=== PATIENT | male | born 1930 | race Caucasian/White ===

== ENCOUNTER 2017-06-19 14:11 | Inpatient (IN) | payer OTHER ==
[~2017-06-19] VITALS: Ht 167.6 cm; Wt 48.1 kg
[~2017-06-19 14:11] MED LIST: ASPI81TA21 PO; ATOR-22 PO; CALC0.2510 PO; CARV3.122 PO; ISOS30TA35 PO; LISI-729 PO; NTRGSL/4 UT; OMEP20TA PO; TAMS0.4C38 PO
[2017-06-19 14:50] LABS: BASO % 0.1 %; BASO ABS # 0.01 K/uL (0-0.2); COMPLETE YES; EOS % 0.1 %; HEMATOCRIT 39.6 % (42-52); IG% 0.7 %; LYMPH % 11.7 %; LYMPH ABS # 1.06 K/uL (1.2-3.4); MEAN CELL VOLUME 90.8 fL (80-100); MEAN CORPUSCULAR HEMOGLOBIN 30.5 pg (25-34); MEAN CORPUSCULAR HGB CONC 33.6 g/dl (32-36); MEAN PLATELET VOLUME 9.4 fL (7.4-10.4); MONO % 6.9 %; NEUT % 80.5 %; PLATELET COUNT 228 K/uL (130-400); RED BLOOD COUNT 4.36 M/uL (4.7-6.1); WHITE BLOOD COUNT 9.05 K/uL (4.8-10.8)
[2017-06-19 14:56] LABS: ISTAT CREATININE 2.5 mg/dl (0.6-1.3); ISTAT HEMOGLOBIN 13.9 g/dl (14.0-18.0); ISTAT IONIZED CALCIUM 1.15 mmol/l (1.12-1.32)
[2017-06-19] MEDS ORDERED: CALCIUM GLUCONATE 10% 10 ML VIAL IV STA (15:00)
[2017-06-19] MEDS ORDERED: NovoLIN-R INSULIN PER UNIT CHARGE IV STA (15:00)
[2017-06-19] MEDS ORDERED: DEXTROSE 50% 50 ML SYR IV STA (15:00)
[2017-06-19] MEDS ORDERED: ALBUTEROL 0.5% NEB SOLN 2.5 MG/0.5 ML VIAL INH STA (15:00)
[2017-06-19] MEDS ORDERED: SODIUM CHLORIDE 0.9% 1000ML 1,000 ML IV STA (15:00)
--- NOTE | 2017-06-19 15:02 | EMERGENCY ROOM VISIT NOTE ---
History Report prepared by Mikael: Elizabeth Sue Under the Supervision of: Dr. Jose Liu M.D. First contact with patient: 14:14 Chief Complaint: ABNORMAL LABS Stated Complaint: HIGH POTASSIUM History of Present Illness The patient is an 86 year old male who presents to the Emergency Room with complaints of abnormal lab results. He is accompanied by his daughter. The patient was started on Bactrim this past weekend by a local urgent care clinic for a UTI. He followed up with his PCP, Dr. Collins with [facility], this morning. A few hours after the appointment, his daughter was called by Dr. Collins's nursing staff and states the patient was referred to the ED for abnormally high Potassium levels. His daughter reports the patient had been complaining of back pain for the past week, and took Tylenol, which is unusual for him. The patient states his UTI symptoms have been improving but his urine stream is still weak when he urinates. He denies any abdominal pain. 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 A total of 10 systems reviewed and were otherwise negative. Past Medical & Surgical Medical Problems: (1) CHANO (acute kidney injury) (2) Atrial flutter (3) BPH w urinary obs/LUTS (4) CAD (coronary artery disease) (5) CKD (chronic kidney disease), stage III (6) Dyslipidemia (7) Elevated troponin (8) Exertional angina (9) GERD (gastroesophageal reflux disease) (10) HTN (hypertension) (11) Hyperkalemia Surgical Problems: (1) H/O inguinal hernia repair (2) History of cataract surgery (3) History of quadruple bypass (4) S/P CABG x 4 (5) S/P cardiac catheterization Family History FHx: heart disease Social History Smoking Status: Former Smoker Alcohol Use: none Drug Use: none Marital Status: Housing Status: lives with family Occupation Status: retired Current/Historical Medications Scheduled Aspirin (Aspirin Chewable), 81 MG PO DAILY Atorvastatin (Lipitor), 20 MG PO DAILY Calcitriol (Rocaltrol Cap), 0.25 MCG PO DAILY Carvedilol (Coreg), 0.5 TAB PO BID Furosemide (Furosemide), 20 MG PO DAILY Isosorbide Mononitrate Ext Rel (Imdur Ext Rel), 30 MG PO QAM Lisinopril (Prinivil), 5 MG PO DAILY Nitroglycerin (Nitrostat), 0.4 MG UT PRN Omeprazole (Omeprazole), 20 MG PO QPM Sulfamethoxazole-Trimethoprim (Bactrim Ds 800MG/160MG), 1 TAB PO BID Tamsulosin Hcl (Flomax), 0.4 MG PO DAILY Allergies Coded Allergies: Peanut (Verified Allergy, Intermediate, RASH, 09/11/16) Tomato (Verified Allergy, Intermediate, RASH, 09/11/16) No Known Drug Allergy (Verified Allergy, Unknown, ., 06/27/16) Physical Exam Vital Signs Date Time Temp Pulse Resp B/P (MAP) Pulse Ox O2 Delivery O2 Flow Rate FiO2 06/19/17 17:16 85 12 143/78 94 Room Air 06/19/17 16:17 86 16 146/87 94 Room Air 06/19/17 15:34 71 16 163/82 95 Room Air 06/19/17 14:45 93 Room Air 06/19/17 14:36 82 06/19/17 14:15 36.6 89 18 121/63 96 Room Air Physical Exam GENERAL: Patient is a healthy-appearing well-nourished 86 year old male HEAD: Normocephalic atraumatic EYES: Ocular movements intact pupils equal and react to light OROPHARYNX mucous membranes are moist no exudates present no erythema or edema present NECK: Supple no nuchal rigidity CHEST: Good equal expansion LUNGS: Clear and equal to auscultation CARDIAC: Normal S1 and S2 ABDOMEN: Soft nontender no guarding BACK: No CVA tenderness RECTAL: Grossly bloody EXTREMITIES: No pain upon palpation normal muscle strength in all groups no clubbing cyanosis or edema NEURO: Patient is following commands is answering questions appropriately. Alert and oriented x3 Cranial Nerves 2-12 grossly intact Medical Decision & Procedures Laboratory Results Test 06/19/17 14:34 06/19/17 14:45 06/19/17 15:50 06/19/17 17:25 Direct Bilirubin 0.2 mg/dl (0-0.2) Total Creatine Kinase 352 U/L (39-308) Creatine Kinase MB 9.0 ng/ml (0.5-3.6) Creatine Kinase MB Ratio 2.6 (0-3.0) Thyroid Stimulating Hormone (TSH) 4.370 uIu/ml (0.300-4.500) Bedside Hemoglobin 13.9 g/dl (14.0-18.0) Bedside Hematocrit 41 % (42-52) Bedside Sodium 136 mEq/L (135-144) Bedside Potassium 5.9 mEq/L (3.3-5.0) Bedside Chloride 104 mEq/L (101-112) Bedside Total CO2 23 mEq/l (24-31) Bedside Blood Urea Nitrogen 46 mg/dl (7-18) Bedside Creatinine 2.5 mg/dl (0.6-1.3) Bedside Glucose (other) 117 mg/dl (70-99) Bedside Ionized Calcium (Jeanne) 1.15 mmol/l (1.12-1.32) Urine Color YELLOW Urine Appearance CLEAR (CLEAR) Urine pH 7.0 (4.5-7.5) Urine Specific [place] 1.018 (1.000-1.030) Urine Protein NEG (NEG) Urine Glucose (UA) 1+ (NEG) Urine Ketones NEG (NEG) Urine Occult Blood 1+ (NEG) Urine Nitrite NEG (NEG) Urine Bilirubin NEG (NEG) Urine Urobilinogen NEG (NEG) Urine Leukocyte Esterase SMALL (NEG) Urine WBC (Auto) 10-30 /hpf (0-5) Urine RBC (Auto) 10-30 /hpf (0-4) Urine Hyaline Casts (Auto) 1-5 /lpf (0-5) Urine Epithelial Cells (Auto) 10-20 /lpf (0-5) Urine Bacteria (Auto) NEG (NEG) Total Bilirubin 0.4 mg/dl (0.2-1) Aspartate Amino Transf (AST/SGOT) 39 U/L (15-37) Alanine Aminotransferase (ALT/SGPT) 41 U/L (12-78) Alkaline Phosphatase 73 U/L (45-117) Total Protein 7.1 gm/dl (6.4-8.2) Albumin 3.2 gm/dl (3.4-5.0) Globulin 3.9 gm/dl (2.5-4.0) Albumin/Globulin Ratio 0.8 (0.9-2) Beta-Hydroxybutyric Acid 1.10 mg/dL (0.2-2.81) Labs reviewed by ED physician. Medications Administered Medications (Trade) Dose Ordered Sig/Malachi Route Start Time Stop Time Status Last Admin Dose Admin Sodium Chloride 1,000 ml @ 999 mls/hr Q1H1M STAT IV 06/19/17 15:00 06/19/17 16:00 DC 06/19/17 15:19 999 MLS/HR Calcium Gluconate (Calcium Gluconate 10%) 1,000 mg NOW STAT IV 06/19/17 15:00 06/19/17 15:04 DC 06/19/17 15:17 1,000 MG Albuterol Sulfate (Ventolin 0.5% 2.5MG/0.5ML Neb) 2.5 mg NOW STAT INH 06/19/17 15:00 06/19/17 15:04 DC 06/19/17 15:17 2.5 MG Insulin Human Regular (novoLIN-R U-100 PER UNIT) 10 units NOW STAT IV 06/19/17 15:00 06/19/17 15:04 DC 06/19/17 15:17 10 UNITS Dextrose (Dextrose 50% 50ML Syringe) 50 ml NOW STAT IV 06/19/17 15:00 06/19/17 15:04 DC 06/19/17 15:18 50 ML Dextrose (Dextrose 50% 50ML Syringe) 50 ml STK-MED ONCE .ROUTE 06/19/17 17:24 06/19/17 17:25 DC 06/19/17 17:24 50 ML ED Course 1455: Past medical records reviewed. The patient was evaluated in room C6. A complete history and physical examination was performed. 1500: Dextrose 50 ml IV, Insulin Human Regular 10 units IV, Albuterol Sulfate 2.5 mg INH, Calcium Gluconate 1000 mg IV, NSS 1000 ml @ 999 mls/hr IV. 1515: I discussed the patients case with Melodie Kahn PA-C, [facility] Hospitalist. The patient will be further evaluated. 1519: Nursing informed me the patient has a Troponin of 0.541. Medical Decision Prior records/ancillary studies reviewed. Triage Nursing notes reviewed. The patient's history was concerning for possible gastrointestinal bleeding. Differential diagnosis: Etiologies such as diverticulosis, AVM, coagulopathy, colitis, inflammatory bowel disease, malignancy, Chelsy-Chapa tear, esophagitis, peptic ulcer disease , variceal bleed, gastritis, epistaxis, fissure, hemorrhoids, as well as others were entertained. This is an 86-year-old male who presents emergency department over concerns his potassium was elevated. The patient's potassium is elevated therefore he was given calcium gluconate in the emergency department. The patient also has EKG changes consistent with peaked T waves. In addition the patient also appears to have an and STEMI. The patient was given dextrose along with insulin he is also started on a heparin drip and given aspirin. I did discuss the case with the hospitalist service who agreed to admit the patient. Patient family were in agreement with the treatment plan. Medication Reconcilliation Current Medication List: was personally reviewed by me Blood Pressure Screening Patient's blood pressure: Normal blood pressure Blood pressure disposition: Did not require urgent referral Consults Time Called: 1507 Consulting Physician[facility] Returned Call: 1518 I discussed the patients case with Melodie Kahn PA-C, [facility] Hospitalist. The patient will be further evaluated. Impression Primary Impression: Acute renal failure Additional Impression: NSTEMI (non-ST elevated myocardial infarction) Scribe Attestation The scribe's documentation has been prepared under my direction and personally reviewed by me in its entirety. I confirm that the note above accurately reflects all work, treatment, procedures, and medical decision making performed by me. Departure Information Dispostion Being Evaluated By Hospitalist Referrals No Doctor, Assigned (PCP) Patient Instructions My [facility] Problem Qualifiers Primary Impression: Acute renal failure Acute renal failure type: unspecified Qualified Codes: N17.9 - Acute kidney failure, unspecified
[2017-06-19 15:05] LABS: BUN/CREATININE RATIO 17.4 (10-20); CALCIUM 9.6 mg/dl (8.5-10.1); CREATININE 2.6 mg/dl (0.60-1.40); POTASSIUM 5.8 mmol/L (3.5-5.1)
[2017-06-19 15:19] LABS: CKMB/CK RATIO 2.6 (0-3.0); THYROID STIMULATING HORMONE 4.37 uIu/ml (0.300-4.500)
[2017-06-19] MEDS ORDERED: ASPCH81X PO (15:57)
[2017-06-19] MEDS ORDERED: LSX20 PO (15:57)
[2017-06-19] MEDS ORDERED: ASPIRIN 81 MG CHEW PO STA (16:00)
[2017-06-19] MEDS ORDERED: SULF800T23 PO (16:06)
[2017-06-19 16:11] LABS: URINE APPEARANCE CLEAR (CLEAR); URINE BILIRUBIN NEG (NEG); URINE COLOR YELLOW; URINE NITRITE NEG (NEG); URINE SPECIFIC GRAVITY 1.018 (1.000-1.030); UROBILINOGEN NEG (NEG)
[2017-06-19] MEDS ORDERED: HEPARIN 25000 UNIT/500 ML D5W ONE (16:18)
--- NOTE | 2017-06-19 16:19 | DIAGNOSTIC IMAGING REPORT ---
(RENAL)RETROPERITON COMP HISTORY: Renal insufficiency Pt c/o ARF COMPARISON: None. FINDINGS: Right kidney: Maximum dimension 10.2 cm. No evidence for hydronephrosis. Several right renal cysts measuring up to 4.5 cm. Moderate cortical thinning with a moderate increase in cortical echogenicity. Left kidney: Maximum dimension 9.5 cm. No evidence for hydronephrosis. Several cysts measuring to 3.5 cm. Moderate cortical thinning and increase in cortical echogenicity. Bladder: No bladder wall thickening. The bilateral ureteral jets were identified. IMPRESSION: 1. Cortical thinning and increase in cortical echogenicity consistent with renal insufficiency. 2. Multiple bilateral renal cysts. 3. No evidence for hydronephrosis. The above report was generated using voice recognition software. It may contain grammatical, syntax or spelling errors. Electronically signed by: Shailesh Gurrola M.D. 06/19/2017 4:18 PM Dictated Date/Time: 06/19/2017 4:16 PM
[2017-06-19 16:36] LABS: MANUAL MICROSCOPIC REQUIRED? NO; REVIEW REQ? NO
--- NOTE | 2017-06-19 16:58 | History and Physical ---
History & Physical Date & Time of Service: Jun 19, 2017 at 16:06 Chief Complaint: High Potassium Primary Care Physician: Chris Collins D.O. History of Present Illness Source: patient, family (daughter at bedside), clinic records This is an 86 y/o male with PMH of CAD s/p multiple RI's, s/p CABG x 4 in 1995, s/p inferior STEMI June 2010 at which time cardiac cath showed complete occlusion of SVG to RCA which was not amenable to PCI and was treated medically , chronic systolic CHF, EF 45-50%, atrial flutter, off Coumadin since 08/07/2016 due to bleeding complication, HTN, HL, CKD stage III, and other problems listed below who was sent to the ED by Dr. Collins for abnormal labs. Patient follows with Dr. Anderson for cardiology. Patient was seen in urgent care for dysuria on 06/14/17 and placed on Bactrim for possible UTI. Urine culture 06/14/17 grew mixed juan. Has been taking Bactrim since that time with improvement of urinary symptoms, however has been feeling fatigued with poor appetite. He was seen by Dr. Collins today. Outpatient labs today showed Creat of 2.3 (basline 1.5 ) and potassium 6.4. Patient was sent to ER, where creat =2.6 and potassium= 5.8. He was treated with insulin and dextrose, albuterol, calcium gluconate, and 1 liter of NSS. Patient denies fever, chest pain, SOB, N/V/D, edema, weight gain. States he did feel SOB last week for which he took nitro, but denies any similar symptoms today. Denies NSAID use. Past Medical/Surgical History Medical Problems: (1) Atrial flutter Status: Chronic (2) BPH w urinary obs/LUTS Status: Chronic (3) CAD (coronary artery disease) Status: Chronic (4) CKD (chronic kidney disease), stage III Status: Chronic (5) Dyslipidemia Status: Chronic (6) Exertional angina Status: Chronic (7) GERD (gastroesophageal reflux disease) Status: Chronic (8) HTN (hypertension) Status: Chronic Surgical Problems: (1) H/O inguinal hernia repair Status: Chronic (2) History of cataract surgery Status: Chronic (4) S/P CABG x 4 Permanent Comment: 1995- SBG to RCA, SVG to OM, SVG to diagonal, ORTIZ to LAD Status: Chronic (5) S/P cardiac catheterization Permanent Comment: inferior STEMI June 2010, cardiac cath showed complete occlusion of SVG to RCA not amenable to PCI, treated medically Status: Chronic Family History FHx: heart disease FATHER Stroke MOTHER Social History Smoking Status: Never Smoker Smokeless Tobacco Use: former smokeless tobacco use Housing status: lives alone Occupational Status: retired Immunizations History of Influenza Vaccine: Unknown Influenza Vaccine Date: Aug 16, 2010 History of Tetanus Vaccine?: Yes Tetanus Immunization Date: Dec 17, 2010 History of Pneumococcal: Yes Pneumococcal Date: Aug 16, 2009 History of Hepatitis B Vaccine: No Multi-Drug Resistant Organisms History of MDRO: No Allergies Coded Allergies: Peanut (Verified Allergy, Intermediate, RASH, 09/11/16) Tomato (Verified Allergy, Intermediate, RASH, 09/11/16) No Known Drug Allergy (Verified Allergy, Unknown, ., 06/27/16) Home Medications Scheduled Aspirin (Aspirin Chewable), 81 MG PO DAILY Atorvastatin (Lipitor), 20 MG PO DAILY Calcitriol (Rocaltrol Cap), 0.25 MCG PO DAILY Carvedilol (Coreg), 0.5 TAB PO BID Furosemide (Furosemide), 20 MG PO DAILY Isosorbide Mononitrate Ext Rel (Imdur Ext Rel), 30 MG PO QAM Lisinopril (Prinivil), 5 MG PO DAILY Nitroglycerin (Nitrostat), 0.4 MG UT PRN Omeprazole (Omeprazole), 20 MG PO QPM Sulfamethoxazole-Trimethoprim (Bactrim Ds 800MG/160MG), 1 TAB PO BID Tamsulosin Hcl (Flomax), 0.4 MG PO DAILY Review of Systems Ten systems reviewed and negative except as noted in HPI. Physical Exam Vital Signs Date Time Temp Pulse Resp B/P (MAP) Pulse Ox O2 Delivery O2 Flow Rate FiO2 06/19/17 15:34 71 16 163/82 95 Room Air 06/19/17 14:45 93 Room Air 06/19/17 14:36 82 06/19/17 14:15 36.6 89 18 121/63 96 Room Air General Appearance: no apparent distress, + thin, + pertinent finding (alert elderly male, no distress, daughter at bedside) Head: normocephalic, atraumatic Eyes: normal inspection, EOMI, sclerae normal ENT: normal ENT inspection, hearing grossly normal Neck: trachea midline, + JVD Respiratory/Chest: lungs clear, normal breath sounds, no respiratory distress, no accessory muscle use Cardiovascular: regular rate, rhythm, + pertinent finding (murmur not appreciated) Abdomen/GI: non tender, soft Extremities/Musculoskelatal: normal inspection, no calf tenderness, no pedal edema, + pertinent finding (no focal deficit on gross examination) Neurologic/Psych: alert, normal mood/affect, oriented x 3 Skin: normal color, warm/dry Diagnostics Laboratory Results Results Past 24 Hours Test 06/19/17 14:34 06/19/17 14:45 06/19/17 14:57 06/19/17 15:50 Range/Units White Blood Count 9.05 4.8-10.8 K/uL Red Blood Count 4.36 4.7-6.1 M/uL Hemoglobin 13.3 14.0-18.0 g/dL Hematocrit 39.6 42-52 % Mean Corpuscular Volume 90.8 80-100 fL Mean Corpuscular Hemoglobin 30.5 25-34 pg Mean Corpuscular Hemoglobin Concent 33.6 32-36 g/dl Platelet Count 228 130-400 K/uL Mean Platelet Volume 9.4 7.4-10.4 fL Neutrophils (%) (Auto) 80.5 % Lymphocytes (%) (Auto) 11.7 % Monocytes (%) (Auto) 6.9 % Eosinophils (%) (Auto) 0.1 % Basophils (%) (Auto) 0.1 % Neutrophils # (Auto) 7.29 1.4-6.5 K/uL Lymphocytes # (Auto) 1.06 1.2-3.4 K/uL Monocytes # (Auto) 0.62 0.11-0.59 K/uL Eosinophils # (Auto) 0.01 0-0.5 K/uL Basophils # (Auto) 0.01 0-0.2 K/uL RDW Standard Deviation 45.3 36.4-46.3 fL RDW Coefficient of Variation 13.7 11.5-14.5 % Immature Granulocyte % (Auto) 0.7 % Immature Granulocyte # (Auto) 0.06 0.00-0.02 K/uL Sodium Level 136 136-145 mmol/L Potassium Level 5.8 3.5-5.1 mmol/L Chloride Level 104 98-107 mmol/L Carbon Dioxide Level 22 21-32 mmol/L Anion Gap 10.0 16.0 16-25 mmol/L Blood Urea Nitrogen 45 7-18 mg/dl Creatinine 2.60 0.60-1.40 mg/dl Est Creatinine Clear Calc Drug Dose 14.0 ml/min Estimated GFR () 24.4 Estimated GFR (Non- 21.1 BUN/Creatinine Ratio 17.4 10-20 Random Glucose 118 70-99 mg/dl Calcium Level 9.6 8.5-10.1 mg/dl Total Bilirubin 0.4 0.2-1 mg/dl Direct Bilirubin 0.2 0-0.2 mg/dl Aspartate Amino Transf (AST/SGOT) 47 15-37 U/L Alanine Aminotransferase (ALT/SGPT) 45 12-78 U/L Alkaline Phosphatase 81 45-117 U/L Total Creatine Kinase 352 39-308 U/L Creatine Kinase MB 9.0 0.5-3.6 ng/ml Creatine Kinase MB Ratio 2.6 0-3.0 Troponin I 0.541 0-0.045 ng/ml Total Protein 8.1 6.4-8.2 gm/dl Albumin 3.7 3.4-5.0 gm/dl Thyroid Stimulating Hormone (TSH) 4.370 0.300-4.500 uIu/ml Bedside Hemoglobin 13.9 14.0-18.0 g/dl Bedside Hematocrit 41 42-52 % Bedside Sodium 136 135-144 mEq/L Bedside Potassium 5.9 3.3-5.0 mEq/L Bedside Chloride 104 101-112 mEq/L Bedside Total CO2 23 24-31 mEq/l Bedside Blood Urea Nitrogen 46 7-18 mg/dl Bedside Creatinine 2.5 0.6-1.3 mg/dl Bedside Glucose (other) 117 70-99 mg/dl Bedside Ionized Calcium (Jeanne) 1.15 1.12-1.32 mmol/l Bedside Glucose 121 70-99 mg/dl Test 06/19/17 16:00 Range/Units Diagnostic Radiology RENAL ULTRASOUND- per radiology IMPRESSION: 1. Cortical thinning and increase in cortical echogenicity consistent with renal insufficiency. 2. Multiple bilateral renal cysts. 3. No evidence for hydronephrosis. EKG poor data quality/ artifact present; appears to be regular however unable to discern P waves due to artifact- needs repeat EKG; no obvious ST elevation Impression Assessment and Plan HYPERKALEMIA K is 5.8 No peaked T waves or ectopy Received insulin and dextrose, albuterol, and calcium gluconate in ER Check repeat potassium this evening Monitor in telemetry CHANO ON CKD STAGE III Creat is 2.6 (baseline 1.5) Likely due to Bactrim as outpatient for possible UTI; Denies NSAID use Renal US- negative for hydronephrosis, + Cortical thinning and increase in cortical echogenicity consistent with renal insufficiency, + Multiple bilateral renal cysts. Received 1 liter IVF's in ER Hold lisinopril and Lasix Trend renal function Avoid nephrotoxins ELEVATED TROPONIN Troponin is 0.541; EKG difficult to interpret due to artifact, however no obvious ST elevation Question of NSTEMI? however no chest pain/ SOB, question due to CHANO? Patient with history of CAD s/p multiple RI's, s/p CABG x 4, in 1995, s/p inferior STEMI June 2010, cardiac cath showed complete occlusion of SVG to RCA not amenable to PCI, treated medically Cardiology consulted- Dr. Clifton is aware, will defer to cardiology on possible heparin drip Trend cardiac enzymes Check echo for wall motion abnormality Aspirin 324 mg Continue aspirin, statin, beta rosina, Imdur Plavix previously discontinued due to GIB as per cardiology note ATRIAL FLUTTER Initial EKG difficult to interpret due to artifact; recheck EKG Rate is controlled Continue carvedilol Coumadin previously discontinued in 07/2016 due to bleeding complication as per cardiology note CHRONIC SYSTOLIC CHF No acute decompensation Received 1 liter IVF's in ER Hold Lasix for CHANO - unclear how compliant he was at home Monitor volume status Echo 06/10/2106 - The examination is adequate to evaluate the referral indication. The left ventricular cavity size is normal. The wall thickness is mildly increased in segments with normal wall motion. Mid and apical segments of the inferior wall are hypokinetic to akinetic. The apical anterior septum is hypokinetic to akinetic. Qualitative LV ejection Fraction = 45-50%. The estimated pulmonary artery systolic pressure is 50mm Hg. A small pericardial effusion is present, primarily adjacent to the right heart. Ascites is present. Severe mitral regurgitation is present. Severe tricuspid regurgitation is present. RECENT POSSIBLE UTI Treated with Bactrim since 06/14/17 with symptomatic improvement- discontinue due to CHANO Urine culture 06/14/17- multiple juan Repeat UA pending BPH Continue Flomax GERD Continue PPI CODE STATUS Full code per discussion on admission with patient and daughter at bedside. Daughter wishes to be updated on patient's condition (cell [phone]). DISPOSITION Follows with Dr. Collins for primary care Patient seen in collaboration with Dr. José. Please see his addendum. Attending Physician Addendum I have examined the patient with Femi KIM and agree with her plans and in addition would like to add that This patient is a 86 year old M with ischemic cardiomyopathy with a previous RI in 1993 and 1995, s/p coronary artery bypass surgery with a saphenous vein graft to the right coronary artery, saphenous vein graft to OM, saphenous vein graft to diagonal and ORTIZ to the LAD, and chronic kidney disease, who was sent to the ED because of hyperkalemia and found also to have elevated troponins in the ED of 0.5. Patient denies chest pain or shortness of breath. Cardiology consult was asked for evaluation of NSTEMI, however this elevations of troponins was attributed to renal insufficiency. Aspirin and 324 mg and heparin drip which had been ordered by ED provider was not given for this reason. Troponins downtrending to 0.48 After receiving albuterol and insulin treatments with dextrose to treat the hyperkalemia, patient was seen to be diaphoretic with glucose levels in the 40s with subsequent improvement after dextrose was given. Hyperkalemia downtrending to 4.4 Of note patient reported to his daughter that when he went to urinate in the ED , he noted spots of blood in the toilet but could not show this to her because the toilet had flushed. For these reasons of hyperkalemia, his home dosed lisinopril has been held, and because of possible hematuria, the patient may require renal consultation / followup. Renal ultrasound: 1. Cortical thinning and increase in cortical echogenicity consistent with renal insufficiency and multiple bilateral renal cysts. DVT prophylaxis with SCD Resuscitation Status FULL RESUSCITATION
--- NOTE | 2017-06-19 17:19 | DIAGNOSTIC IMAGING REPORT ---
CHEST ONE VIEW PORTABLE CLINICAL HISTORY: CHANO, hyperkalemia, troponin elevation COMPARISON STUDY: 10/08/2016 FINDINGS: There are postsurgical changes of a midline sternotomy. The heart is enlarged. There is mild interstitial pulmonary edema. There is a small left pleural effusion, and increasing small to moderate right pleural effusion. Basilar opacities likely reflect compressive atelectatic changes/edema. IMPRESSION: 1. Increasing right pleural effusion, and persistent small left pleural effusion 2. Cardiomegaly and mild interstitial edema. Electronically signed by: Yared Hebert M.D. 06/19/2017 5:18 PM Dictated Date/Time: 06/19/2017 5:17 PM
[2017-06-19] MEDS ORDERED: DEXTROSE 50% 50 ML SYR ONE (17:24)
[2017-06-19 18:08] LABS: INR 1.2 (0.9-1.1); PROTHROMBIN TIME (PATIENT) 12.8 SECONDS (9.0-12.0)
[2017-06-19 18:26] LABS: ALB/GLOB RATIO 0.8 (0.9-2); BUN/CREATININE RATIO 16.4 (10-20); CALCIUM 9.1 mg/dl (8.5-10.1); CREATININE 2.5 mg/dl (0.60-1.40); POTASSIUM 4.4 mmol/L (3.5-5.1)
[2017-06-19] MEDS ORDERED: NITROGLYCERIN 0.4 MG SL PER TAB CHARGE UT SCH (18:30)
--- NOTE | 2017-06-19 18:39 | CARDIOLOGY CONSULTATION ---
DATE OF CONSULTATION: 06/19/2017 REFERRING PHYSICIAN: Karyn lake. REASON FOR CONSULTATION: Elevated troponins. HISTORY OF PRESENT ILLNESS: This is an 86-year-old male patient who has a complex medical history due to vascular disease. He has an ischemic cardiomyopathy with a previous DC in 1993 and 1995. He is status post coronary artery bypass surgery with a saphenous vein graft to the right coronary artery, saphenous vein graft to OM, saphenous vein graft to diagonal and ORTIZ to the LAD. 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 Recently, he has been feeling poorly. His daughter took him to see his streaming media specialist today and labs were drawn. The patient has no ongoing cardiac symptoms as a reason for him coming to the Emergency Department. He was called by his primary care physician after the labs were obtained and told to come to the Emergency Room due to an elevated potassium of 6.4. His creatinine today is 2.3. The patient has no complaints of chest pain, shortness of breath, heart palpitations, dizziness or lightheadedness. In the Emergency Department, cardiac markers were drawn and his cardiac troponin is mildly elevated, which is due to his renal insufficiency and not due to acute coronary syndrome. He will be admitted because of a high potassium. His EKG has baseline artifact and variability, but I believe he is in a sinus rhythm without acute EKG changes, which suggests ischemia. There are no significant findings on the EKG that would suggest hyperkalemia. ALLERGIES: TOMATOES AND PEANUTS. PAST MEDICAL HISTORY: As outlined above, he has an ischemic heart disease with previous myocardial infarction and coronary artery bypass surgery. I am uncertain as to what his most recent left ventricular ejection fraction would be. He does have in addition chronic renal disease ____ disease. He does have a history of atrial flutter, which may be chronic. The patient has been off of Coumadin since 2016 due to bleeding complications. I believe the bleeding complications were GI related. SOCIAL HISTORY: He lives with his daughter. He is a nonsmoker. FAMILY MEDICAL HISTORY: Noncontributory. REVIEW OF SYSTEMS: A 10-point review of systems is negative except for the history of chief complaint. PHYSICAL EXAMINATION: GENERAL: He is alert and oriented. VITAL SIGNS: Blood pressure is 140/80, pulse is regular at 80 beats per minute. He is afebrile. HEENT: He is normocephalic. Pupils are equal and reactive to light. Extraocular muscles are intact bilaterally. NECK: The neck veins are flat. Carotids have good upstrokes bilaterally without bruits. Thyroid is nonpalpable. RESPIRATORY: Breath sounds equal bilaterally and clear to auscultation. CARDIOVASCULAR: Heart has a regular rhythm. Normal S1 and S2. No S3 or S4. No cardiac rubs or murmurs. GASTROINTESTINAL: Abdomen is soft and nontender without organomegaly. EXTREMITIES: Free of edema, digit clubbing, or cyanosis. NEUROLOGIC: Grossly intact. SKIN: Warm to touch. LYMPH NODES: Negative to palpation. IMPRESSION: 1. Hyperkalemia. 2. Chronic renal disease. 3. Ischemic cardiomyopathy. 4. Status post coronary artery bypass surgery. RECOMMENDATIONS: I do not believe that the patient's troponin elevations are due to acute coronary syndrome. I therefore would not start this patient on heparin. I would continue him on aspirin 81 mg daily. I would hold his lisinopril and ask nephrology to help manage his case.
[2017-06-19 18:43] LABS: BETA-HYDROXYBUTYRATE 1.1 mg/dL (0.2-2.81)
[2017-06-19 19:40] VITALS: BP 143/73; PULSE 80; TEMP 36.4; O2SAT 95; Ht 167.6 cm; Wt 48.1 kg
[2017-06-19] MEDS: CARVEDILOL 3.125 MG TAB PO SCH (20:54)
[2017-06-19 23:58] VITALS: BP 117/76; PULSE 78; TEMP 36.9; O2SAT 90
[2017-06-20] VITALS (7 sets, daily range): BP systolic 108–153; BP diastolic 62–78; PULSE 73–86; TEMP 36.4–36.9; O2SAT 93–97
[2017-06-20 07:37] LABS: BASO % 0.2 %; BASO ABS # 0.02 K/uL (0-0.2); COMPLETE YES; EOS % 0.3 %; IG% 0.3 %; LYMPH % 11.8 %; LYMPH ABS # 1.03 K/uL (1.2-3.4); MEAN CELL VOLUME 90.7 fL (80-100); MEAN CORPUSCULAR HEMOGLOBIN 29.8 pg (25-34); MEAN CORPUSCULAR HGB CONC 32.8 g/dl (32-36); MEAN PLATELET VOLUME 9.3 fL (7.4-10.4); MONO % 9.6 %; NEUT % 77.8 %; PLATELET COUNT 207 K/uL (130-400); WHITE BLOOD COUNT 8.76 K/uL (4.8-10.8)
--- NOTE | 2017-06-20 08:06 | NEPHROLOGY CONSULTATION ---
DATE OF CONSULTATION: 06/20/2017 DATE OF CONSULTATION: 06/20/2017 ATTENDING OF RECORD: Dr. Vidal. REASON FOR CONSULTATION: CHANO and hyperkalemia. HISTORY OF PRESENT ILLNESS: This is an 86-year-old male who follows with my partner, Dr. Bijal Balbuena for CKD stage III. The patient with CKD stage G3A2 with 220 mg of albuminuria in the setting of advanced age and hypertension. The patient does have a history of a 4-vessel CABG in with a STEMI in 2009, history of nephrolithiasis. No NSAIDs. No diabetes. At the time pt was evaluated by nephrology in clinic, the patient's creatinine was around 1.5 with a right kidney at 10 cm, left kidney of 8.3 cm with no tobacco, no diabetes, no NSAID and trying to optimize cardiac function and blood pressure as well as possible. Does have a significant history of PE in the past as well. The patient was having some urinary symptoms and was placed on Bactrim for possible urinary tract infection. Urine culture on the grew mixed juan. The patient was prescribed Bactrim and took it from Friday night to yesterday morning. He has had a decreased appetite, feeling more tired, continues to have burning with urination. The patient was evaluated by his family doctor, Dr. Collins who repeated lab work and found to have worsening creatinine and elevated potassium of 6.4. The patient was subsequently admitted and treated for hyperkalemia as well as given a bolus of IV fluids, potassium level went from 5.8, down to 4.4, creatinine 2.6-2.5. Troponin was 0.541 and is down to 0.489, undergoing an echo this morning. The patient is comfortable, answering questions appropriately. PAST MEDICAL HISTORY: Atrial flutter, BPH with poor urine streams, heart disease with multiple MIs in the past, CABG x4, inferior STEMI with medical management from here on out, CKD stage III with baseline creatinine around 1.5, hyperlipidemia, GERD, hypertension. PAST SURGICAL HISTORY: Cataract surgery, CABG x4, hernia repair. FAMILY HISTORY: Significant for heart disease. SOCIAL HISTORY: No smoking, no alcohol, no drugs. Continues to live alone with some family help. HOME MEDICATIONS: Significant for: 1. Lisinopril 5 mg a day. 2. Lasix 20 mg a day. 3. Imdur 30 mg a day. 4. Was on Bactrim double strength 1 tab p.o. b.i.d. REVIEW OF SYSTEMS: No fevers or chills. No headaches, no blurry vision. No dysphagia. Does get intermittent chest pain for which he takes nitro and get shortness of breath if he over exerts himself. No nausea, vomiting, no diarrhea. Does have dysuria with poor urine streams as well as nocturia. No rash or itching. Positive fatigue. Positive anorexia. All other review of systems otherwise negative. CURRENT MEDICATIONS: Aspirin 81 mg a day, Lipitor 20 mg daily, calcitriol 0.25 mcg daily, Imdur 30 mg daily, Flomax 0.4 mg daily, Coreg 1.5 p.o. b.i.d., nitro as needed. PHYSICAL EXAMINATION: VITAL SIGNS: Temperature 36.8, pulse 73, respiratory rate 16, blood pressure is 108/69, satting 95% on room air. GENERAL: Awake, alert, oriented x3. EYES: No scleral icterus. EARS, NOSE, THROAT: Moist mucous membranes. NECK: Supple. PULMONARY: Clear to auscultation. CARDIAC: Regular. ABDOMEN: Bowel sounds positive, soft, nontender. EXTREMITIES: No clubbing, cyanosis or edema. NEUROLOGICALLY: Nonfocal. DERMATOLOGIC: No rash or ulcers noted. LABORATORY DATA: INR is 1.2. UA with 1+ blood, small leukocyte esterase, 10-30 WBCs, creatinine 2.5, potassium 4.4. Troponin 0.489. CBC is pending for this morning. Last H&H of 13.9 and 41. White count is 9. Renal ultrasound was done which shows cortical thinning with the right kidney 10.2 cm and left kidney of 9.5 cm with signs of medical renal disease, no evidence of hydronephrosis. Chest x-ray shows increasing right pleural effusion and persistent small left pleural effusion, cardiomegaly and mild interstitial edema. IMPRESSION AND PLAN: 1. Acute kidney injury on chronic kidney disease stage III with baseline creatinine 1.5 and comes in with creatinine of 2.6, likely as a consequence of the Bactrim plus or minus an element of volume depletion as well; however calcium levels are normal. Bicarb levels are also normal and there are signs of pleural effusions on chest x-ray and with the poor cardiac function hesitant to be aggressive with IV fluids. I do not feel the patient exhibiting any uremic symptoms, would hold on further IV fluids at this time and with holding diuretics, hopefully creatinine eventually starts to improve as patient's appetite starts to improve as well. Could consider a small rate of normal saline at 50 mL an hour, but would like to discuss it further with cardiology before starting. 2. Hyperkalemia. The patient was on lisinopril and creatinine did trend up and was on Bactrim. Bactrim and lisinopril are both on hold. The potassium levels have trended down. Would like to recheck it again this morning to make sure there is no potassium rebound with potassium levels starting to trend back upward again. Would continue a low potassium diet while here in the hospital and eventually restart his outpatient medications. 3. Anorexia. The patient with a poor appetite, continued burning with urination with poor urine streams. A urine culture as an outpatient was negative and currently not on any antibiotics. He is on Flomax for his BPH. Question if his burning with urination is a sign of infection or just as a consequence of his poor urine streams. Could consider repeating urine culture to be thorough. Appreciate consultation. DIPIKA
[2017-06-20 08:07] LABS: CALCIUM 9.3 mg/dl (8.5-10.1); CREATININE 2.1 mg/dl (0.60-1.40); POTASSIUM 5.8 mmol/L (3.5-5.1)
[2017-06-20] MEDS ORDERED: SODIUM POLYST. SULF SUSP 15G/60ML PO ONE (08:30)
[2017-06-20] MEDS: CARVEDILOL 3.125 MG TAB PO SCH ×2 (08:37→20:17)
[2017-06-20] MEDS: CALCITRIOL 0.25 MCG CAP PO SCH (08:38)
[2017-06-20] MEDS: ASPIRIN 81 MG ECTAB PO SCH (08:38)
[2017-06-20] MEDS: ATORVASTATIN 20 MG TAB PO SCH (08:38)
[2017-06-20] MEDS: TAMSULOSIN HCL 0.4 MG CAP PO SCH (08:39)
[2017-06-20] MEDS: ISOSORBIDE MONONITRATE 30 MG TABCR PO SCH (08:40)
--- NOTE | 2017-06-20 08:42 | Progress Note ---
Medicine Progress Note Date & Time of Visit: Jun 20, 2017 at 08:27. Subjective seen sitting in bedside chair just had breakfast feels about the same as yesterday, "i really didnt feel too bad yesterday" denies abdominal pain ,nausea, chest pain, palpitations, dizziness still feels "burning when urination, also reports straining with urination no fever/chills denies other symptoms Objective Last 8 Hrs Date Time Temp Pulse Resp B/P (MAP) Pulse Ox O2 Delivery O2 Flow Rate FiO2 06/20/17 08:03 Room Air 06/20/17 07:22 36.4 75 16 128/75 (92) 94 Room Air 06/20/17 05:14 36.8 73 16 108/69 (82) 95 Room Air 06/20/17 04:00 Room Air 06/20/17 00:33 75 16 110/68 (82) 97 Room Air 119/72 (88) 115/67 (83) Physical Exam: General- oriented x 3, not in distress, speaks in sentences with no effort Head- atraumatic Eyes- EOMI, anicteric ENT- oropharynx clear Neck- supple, no JVD, no adenopathy, no thyromegaly Lungs- clear breath sounds bilaterally Heart- regular rhythm; no murmur, normal rate Abdomen- normal bowel sounds, soft, nontender Extremities- no pretibial edema, no calf tenderness Neuro- alert, oriented x 3; no gross focal deficits Skin- warm & dry Laboratory Results: Last 24 Hours Test 06/19/17 14:34 06/19/17 14:45 06/19/17 14:57 06/19/17 15:50 White Blood Count 9.05 K/uL Red Blood Count 4.36 M/uL Hemoglobin 13.3 g/dL Hematocrit 39.6 % Mean Corpuscular Volume 90.8 fL Mean Corpuscular Hemoglobin 30.5 pg Mean Corpuscular Hemoglobin Concent 33.6 g/dl Platelet Count 228 K/uL Mean Platelet Volume 9.4 fL Neutrophils (%) (Auto) 80.5 % Lymphocytes (%) (Auto) 11.7 % Monocytes (%) (Auto) 6.9 % Eosinophils (%) (Auto) 0.1 % Basophils (%) (Auto) 0.1 % Neutrophils # (Auto) 7.29 K/uL Lymphocytes # (Auto) 1.06 K/uL Monocytes # (Auto) 0.62 K/uL Eosinophils # (Auto) 0.01 K/uL Basophils # (Auto) 0.01 K/uL RDW Standard Deviation 45.3 fL RDW Coefficient of Variation 13.7 % Immature Granulocyte % (Auto) 0.7 % Immature Granulocyte # (Auto) 0.06 K/uL Sodium Level 136 mmol/L Potassium Level 5.8 mmol/L Chloride Level 104 mmol/L Carbon Dioxide Level 22 mmol/L Anion Gap 10.0 mmol/L 16.0 mmol/L Blood Urea Nitrogen 45 mg/dl Creatinine 2.60 mg/dl Est Creatinine Clear Calc Drug Dose 14.0 ml/min Estimated GFR () 24.4 Estimated GFR (Non- 21.1 BUN/Creatinine Ratio 17.4 Random Glucose 118 mg/dl Calcium Level 9.6 mg/dl Total Bilirubin 0.4 mg/dl Direct Bilirubin 0.2 mg/dl Aspartate Amino Transf (AST/SGOT) 47 U/L Alanine Aminotransferase (ALT/SGPT) 45 U/L Alkaline Phosphatase 81 U/L Total Creatine Kinase 352 U/L Creatine Kinase MB 9.0 ng/ml Creatine Kinase MB Ratio 2.6 Troponin I 0.541 ng/ml Total Protein 8.1 gm/dl Albumin 3.7 gm/dl Thyroid Stimulating Hormone (TSH) 4.370 uIu/ml Bedside Hemoglobin 13.9 g/dl Bedside Hematocrit 41 % Bedside Sodium 136 mEq/L Bedside Potassium 5.9 mEq/L Bedside Chloride 104 mEq/L Bedside Total CO2 23 mEq/l Bedside Blood Urea Nitrogen 46 mg/dl Bedside Creatinine 2.5 mg/dl Bedside Glucose (other) 117 mg/dl Bedside Ionized Calcium (Jeanne) 1.15 mmol/l Bedside Glucose 121 mg/dl Urine Color YELLOW Urine Appearance CLEAR Urine pH 7.0 Urine Specific [place] 1.018 Urine Protein NEG Urine Glucose (UA) 1+ Urine Ketones NEG Urine Occult Blood 1+ Urine Nitrite NEG Urine Bilirubin NEG Urine Urobilinogen NEG Urine Leukocyte Esterase SMALL Urine WBC (Auto) 10-30 /hpf Urine RBC (Auto) 10-30 /hpf Urine Hyaline Casts (Auto) 1-5 /lpf Urine Epithelial Cells (Auto) 10-20 /lpf Urine Bacteria (Auto) NEG Test 06/19/17 17:22 06/19/17 17:25 06/19/17 17:33 06/19/17 17:34 Bedside Glucose 48 mg/dl 264 mg/dl Sodium Level 137 mmol/L Potassium Level 4.4 mmol/L Chloride Level 103 mmol/L Carbon Dioxide Level 24 mmol/L Anion Gap 10.0 mmol/L Blood Urea Nitrogen 41 mg/dl Creatinine 2.50 mg/dl Est Creatinine Clear Calc Drug Dose 14.5 ml/min Estimated GFR () 25.6 Estimated GFR (Non- 22.1 BUN/Creatinine Ratio 16.4 Random Glucose 391 mg/dl Calcium Level 9.1 mg/dl Total Bilirubin 0.4 mg/dl Aspartate Amino Transf (AST/SGOT) 39 U/L Alanine Aminotransferase (ALT/SGPT) 41 U/L Alkaline Phosphatase 73 U/L Troponin I 0.489 ng/ml Total Protein 7.1 gm/dl Albumin 3.2 gm/dl Globulin 3.9 gm/dl Albumin/Globulin Ratio 0.8 Beta-Hydroxybutyric Acid 1.10 mg/dL Prothrombin Time 12.8 SECONDS Prothromb Time International Ratio 1.2 Activated Partial Thromboplast Time 25.9 SECONDS Partial Thromboplastin Ratio 1.0 Test 06/19/17 20:35 06/20/17 07:20 06/20/17 07:22 Bedside Glucose 125 mg/dl Sodium Level 138 mmol/L Potassium Level 5.8 mmol/L Chloride Level 108 mmol/L Carbon Dioxide Level 22 mmol/L Anion Gap 8.0 mmol/L Blood Urea Nitrogen 40 mg/dl Creatinine 2.10 mg/dl Est Creatinine Clear Calc Drug Dose 16.8 ml/min Estimated GFR () 31.6 Estimated GFR (Non- 27.3 BUN/Creatinine Ratio 19.0 Random Glucose 107 mg/dl Calcium Level 9.3 mg/dl Troponin I 0.459 ng/ml White Blood Count 8.76 K/uL Red Blood Count 4.30 M/uL Hemoglobin 12.8 g/dL Hematocrit 39.0 % Mean Corpuscular Volume 90.7 fL Mean Corpuscular Hemoglobin 29.8 pg Mean Corpuscular Hemoglobin Concent 32.8 g/dl Platelet Count 207 K/uL Mean Platelet Volume 9.3 fL Neutrophils (%) (Auto) 77.8 % Lymphocytes (%) (Auto) 11.8 % Monocytes (%) (Auto) 9.6 % Eosinophils (%) (Auto) 0.3 % Basophils (%) (Auto) 0.2 % Neutrophils # (Auto) 6.81 K/uL Lymphocytes # (Auto) 1.03 K/uL Monocytes # (Auto) 0.84 K/uL Eosinophils # (Auto) 0.03 K/uL Basophils # (Auto) 0.02 K/uL RDW Standard Deviation 45.7 fL RDW Coefficient of Variation 13.9 % Immature Granulocyte % (Auto) 0.3 % Immature Granulocyte # (Auto) 0.03 K/uL Assessment & Plan 86 year old male with history of CAD s/p NH, CABG, CHF 35%, A flutter, HTN, CKD 3 presenting with weakness. ACUTE RENAL FAILURE ON CKD STAGE III Creat is 2.6 (baseline 1.5) Likely due to Bactrim, with Lasix and Lisinopril Renal US- negative for hydronephrosis, + Cortical thinning and increase in cortical echogenicity consistent with renal insufficiency, + Multiple bilateral renal cysts. Received 1 liter IVF's in ER -- crea improved to 2.1 Nephro consulted hold off on IV fluids for now to avoid volume overload given CHF Lasix, Lisinopril on hold HYPERKALEMIA -- K on admission, 5.8 now 5.8 again -- Kayexalate ordered check K at 12 noon ELEVATED TROPONIN -- ACS unlikely - Cardiology consulted - troponin 0.5, 0.4 - echo pending - Continue aspirin, statin, beta rosina, Imdur ATRIAL FLUTTER Rate is controlled Continue carvedilol Coumadin previously discontinued in 07/2016 due to bleeding complication as per cardiology note CHRONIC SYSTOLIC CHF, EF 45-50% No acute decompensation Received 1 liter IVF's in ER Hold Lasix for CHANO -- repeat echo pending RECENT POSSIBLE UTI Treated with Bactrim since 06/14/17 with symptomatic improvement- discontinue due to CHANO Urine culture 06/14/17- multiple juan UA equivocal urine culture pending -- urinary symptoms just from prostatomegaly? BPH -- reports straining, incomplete voiding, burning -- check PSA bladder scan qs to r/o urinary retention will consult Urology -- Continue Flomax GERD Continue PPI CODE STATUS Full code per discussion on admission with patient and daughter at bedside. Daughter wishes to be updated on patient's condition (cell [phone]). DISPOSITION Follows with Dr. Collins for primary care anticipate d/c home when medically stable may need home health services Current Inpatient Medications: Current Inpatient Medications Medications (Trade) Dose Ordered Sig/Malachi Route Start Time Stop Time Status Last Admin Dose Admin Aspirin (Ecotrin Tab) 81 mg DAILY PO 06/20/17 09:00 07/20/17 08:59 Atorvastatin Calcium (Lipitor Tab) 20 mg DAILY PO 06/20/17 09:00 07/20/17 08:59 Calcitriol (Rocaltrol Cap) 0.25 mcg DAILY PO 06/20/17 09:00 07/20/17 08:59 Carvedilol (Coreg Tab) 1.5625 mg BID PO 06/19/17 21:00 07/19/17 20:59 06/19/17 20:54 1.5625 MG Isosorbide Mononitrate (Imdur Ext Rel Tab) 30 mg QAM PO 06/20/17 09:00 07/20/17 08:59 Nitroglycerin (Nitrostat Tab) 0.4 mg PRN UT 06/19/17 18:30 07/19/17 18:29 Tamsulosin HCl (Flomax Cap) 0.4 mg DAILY PO 06/20/17 09:00 07/20/17 08:59 Sodium Polystyrene Sulfonate (Kayexalate Susp) 15 gm NOW ONCE PO 06/20/17 08:30 06/20/17 08:31
[2017-06-20] MEDS ORDERED: LISINOPRIL 5 MG TAB PO SCH (09:00)
--- NOTE | 2017-06-20 11:52 | Urology Consultation ---
History General Date of Service: Jun 20, 2017. Primary Care Physician: Chris Collins D.O. Pt seen a urologist before?: No History of Present Illness 86 year old male here with multiple comorbidities. Hx of CHF, RF, TX, CABG, Aflutter, HTN, HL and CKD. Urology is consulted for BPH and hematuria. Notes and chart reviewed. Pt reports he has been having increasingly bothersome urinary symptoms over the past month or two. Noted slowing of stream, urinary frequency and urgency with some dribbling at times. Feels he empties his bladder okay. He is currently on tamsulosin for BPH. Has not followed with a urologist in the past. He was seen by Urgent care on 06/14/17 for dysuria and was treated with Bactrim for possible UTI. Urine culture only showed mixed juan at that time. Notes 1 episode of gross hematuria. Urine is clear today. Denies hx of smoking. Notes personal hx of kidney stones. Has not needed surgical intervention has been able to pass these on his own. He has been having some intermittent right sided flank pain. Renal u/s from this admission does not note any hydronephrosis or notable stone disease. Note cortical thinning and echogenicity consistent with renal insufficiency. PSA is pending. PVR today is 116 ml Urine culture is pending as well. Note his creatinine is elevated but trending downward. Could be due to use of bactrim and lisinopril. Cardiology following. Potassium elevated- 5.8- treated with kayexalate.Had elevated troponin. Was previously on coumadin but according to chart was stopped in 2015 due to bleeding issues. He is currently on ASA 81 mg. Imaging Imaging: Ultrasound Laboratory Last 24 Hours Test 06/19/17 14:34 06/19/17 14:45 06/19/17 14:57 06/19/17 15:50 White Blood Count 9.05 K/uL Red Blood Count 4.36 M/uL Hemoglobin 13.3 g/dL Hematocrit 39.6 % Mean Corpuscular Volume 90.8 fL Mean Corpuscular Hemoglobin 30.5 pg Mean Corpuscular Hemoglobin Concent 33.6 g/dl Platelet Count 228 K/uL Mean Platelet Volume 9.4 fL Neutrophils (%) (Auto) 80.5 % Lymphocytes (%) (Auto) 11.7 % Monocytes (%) (Auto) 6.9 % Eosinophils (%) (Auto) 0.1 % Basophils (%) (Auto) 0.1 % Neutrophils # (Auto) 7.29 K/uL Lymphocytes # (Auto) 1.06 K/uL Monocytes # (Auto) 0.62 K/uL Eosinophils # (Auto) 0.01 K/uL Basophils # (Auto) 0.01 K/uL RDW Standard Deviation 45.3 fL RDW Coefficient of Variation 13.7 % Immature Granulocyte % (Auto) 0.7 % Immature Granulocyte # (Auto) 0.06 K/uL Sodium Level 136 mmol/L Potassium Level 5.8 mmol/L Chloride Level 104 mmol/L Carbon Dioxide Level 22 mmol/L Anion Gap 10.0 mmol/L 16.0 mmol/L Blood Urea Nitrogen 45 mg/dl Creatinine 2.60 mg/dl Est Creatinine Clear Calc Drug Dose 14.0 ml/min Estimated GFR () 24.4 Estimated GFR (Non- 21.1 BUN/Creatinine Ratio 17.4 Random Glucose 118 mg/dl Calcium Level 9.6 mg/dl Total Bilirubin 0.4 mg/dl Direct Bilirubin 0.2 mg/dl Aspartate Amino Transf (AST/SGOT) 47 U/L Alanine Aminotransferase (ALT/SGPT) 45 U/L Alkaline Phosphatase 81 U/L Total Creatine Kinase 352 U/L Creatine Kinase MB 9.0 ng/ml Creatine Kinase MB Ratio 2.6 Troponin I 0.541 ng/ml Total Protein 8.1 gm/dl Albumin 3.7 gm/dl Thyroid Stimulating Hormone (TSH) 4.370 uIu/ml Bedside Hemoglobin 13.9 g/dl Bedside Hematocrit 41 % Bedside Sodium 136 mEq/L Bedside Potassium 5.9 mEq/L Bedside Chloride 104 mEq/L Bedside Total CO2 23 mEq/l Bedside Blood Urea Nitrogen 46 mg/dl Bedside Creatinine 2.5 mg/dl Bedside Glucose (other) 117 mg/dl Bedside Ionized Calcium (Jeanne) 1.15 mmol/l Bedside Glucose 121 mg/dl Urine Color YELLOW Urine Appearance CLEAR Urine pH 7.0 Urine Specific [place] 1.018 Urine Protein NEG Urine Glucose (UA) 1+ Urine Ketones NEG Urine Occult Blood 1+ Urine Nitrite NEG Urine Bilirubin NEG Urine Urobilinogen NEG Urine Leukocyte Esterase SMALL Urine WBC (Auto) 10-30 /hpf Urine RBC (Auto) 10-30 /hpf Urine Hyaline Casts (Auto) 1-5 /lpf Urine Epithelial Cells (Auto) 10-20 /lpf Urine Bacteria (Auto) NEG Test 06/19/17 17:22 06/19/17 17:25 06/19/17 17:33 06/19/17 17:34 Bedside Glucose 48 mg/dl 264 mg/dl Sodium Level 137 mmol/L Potassium Level 4.4 mmol/L Chloride Level 103 mmol/L Carbon Dioxide Level 24 mmol/L Anion Gap 10.0 mmol/L Blood Urea Nitrogen 41 mg/dl Creatinine 2.50 mg/dl Est Creatinine Clear Calc Drug Dose 14.5 ml/min Estimated GFR () 25.6 Estimated GFR (Non- 22.1 BUN/Creatinine Ratio 16.4 Random Glucose 391 mg/dl Calcium Level 9.1 mg/dl Total Bilirubin 0.4 mg/dl Aspartate Amino Transf (AST/SGOT) 39 U/L Alanine Aminotransferase (ALT/SGPT) 41 U/L Alkaline Phosphatase 73 U/L Troponin I 0.489 ng/ml Total Protein 7.1 gm/dl Albumin 3.2 gm/dl Globulin 3.9 gm/dl Albumin/Globulin Ratio 0.8 Beta-Hydroxybutyric Acid 1.10 mg/dL Prothrombin Time 12.8 SECONDS Prothromb Time International Ratio 1.2 Activated Partial Thromboplast Time 25.9 SECONDS Partial Thromboplastin Ratio 1.0 Test 06/19/17 20:35 06/20/17 07:20 06/20/17 07:22 Bedside Glucose 125 mg/dl Sodium Level 138 mmol/L Potassium Level 5.8 mmol/L Chloride Level 108 mmol/L Carbon Dioxide Level 22 mmol/L Anion Gap 8.0 mmol/L Blood Urea Nitrogen 40 mg/dl Creatinine 2.10 mg/dl Est Creatinine Clear Calc Drug Dose 16.8 ml/min Estimated GFR () 31.6 Estimated GFR (Non- 27.3 BUN/Creatinine Ratio 19.0 Random Glucose 107 mg/dl Calcium Level 9.3 mg/dl Troponin I 0.459 ng/ml Prostate Specific Antigen 15.500 ng/ml White Blood Count 8.76 K/uL Red Blood Count 4.30 M/uL Hemoglobin 12.8 g/dL Hematocrit 39.0 % Mean Corpuscular Volume 90.7 fL Mean Corpuscular Hemoglobin 29.8 pg Mean Corpuscular Hemoglobin Concent 32.8 g/dl Platelet Count 207 K/uL Mean Platelet Volume 9.3 fL Neutrophils (%) (Auto) 77.8 % Lymphocytes (%) (Auto) 11.8 % Monocytes (%) (Auto) 9.6 % Eosinophils (%) (Auto) 0.3 % Basophils (%) (Auto) 0.2 % Neutrophils # (Auto) 6.81 K/uL Lymphocytes # (Auto) 1.03 K/uL Monocytes # (Auto) 0.84 K/uL Eosinophils # (Auto) 0.03 K/uL Basophils # (Auto) 0.02 K/uL RDW Standard Deviation 45.7 fL RDW Coefficient of Variation 13.9 % Immature Granulocyte % (Auto) 0.3 % Immature Granulocyte # (Auto) 0.03 K/uL Current Inpatient Medications Medications (Trade) Dose Ordered Sig/Malachi Route Start Time Stop Time Status Last Admin Dose Admin Aspirin (Ecotrin Tab) 81 mg DAILY PO 06/20/17 09:00 07/20/17 08:59 06/20/17 08:38 81 MG Atorvastatin Calcium (Lipitor Tab) 20 mg DAILY PO 06/20/17 09:00 07/20/17 08:59 06/20/17 08:38 20 MG Calcitriol (Rocaltrol Cap) 0.25 mcg DAILY PO 06/20/17 09:00 07/20/17 08:59 06/20/17 08:38 0.25 MCG Carvedilol (Coreg Tab) 1.5625 mg BID PO 06/19/17 21:00 07/19/17 20:59 06/20/17 08:37 1.5625 MG Isosorbide Mononitrate (Imdur Ext Rel Tab) 30 mg QAM PO 06/20/17 09:00 07/20/17 08:59 06/20/17 08:40 30 MG Nitroglycerin (Nitrostat Tab) 0.4 mg PRN UT 06/19/17 18:30 07/19/17 18:29 Tamsulosin HCl (Flomax Cap) 0.4 mg DAILY PO 06/20/17 09:00 07/20/17 08:59 06/20/17 08:39 0.4 MG Labs were reviewed and are within normal limits unless listed below. Labs are available in the chart and at [facility] Problem List Medical Problems: (1) Acute renal failure Status: Acute (2) NSTEMI (non-ST elevated myocardial infarction) Status: Acute Past History BPH, congestive heart failure, coronary artery disease, heart disease, high cholesterol, hypertension, kidney stones, myocardial infarction, renal disease Past Surgical History: cardiac catheterization, coronary bypass surgery Family History FHx: heart disease FATHER Stroke MOTHER Social History Hx Tobacco Use In Past Year?: No Smoking: non-smoker Alcohol: never Housing status: lives alone Occupation status: retired Immunizations History of Influenza Vaccine: Unknown Influenza Vaccine Date: Aug 16, 2010 History of Tetanus Vaccine?: Yes Tetanus Immunization Date: Dec 17, 2010 History of Pneumococcal: Yes Pneumococcal Date: Aug 16, 2009 History of Hepatitis B Vaccine: No History of MDRO No Allergies Coded Allergies: Peanut (Verified Allergy, Intermediate, RASH, 09/11/16) Tomato (Verified Allergy, Intermediate, RASH, 09/11/16) No Known Drug Allergy (Verified Allergy, Unknown, ., 06/27/16) Medications Home Medications: Home Meds and Scripts Medications Dose Route/Sig Max Daily Dose Days Date Category Dose Instructions Bactrim Ds 800MG/160MG (Sulfamethoxazole-Trimethoprim) 1 Tab Tab 1 Tab PO BID 7 06/19/17 Reported Furosemide 20 Mg Tab 20 Mg PO DAILY 06/19/17 Reported Aspirin Chewable (Aspirin) 81 Mg Chew 81 Mg PO DAILY 06/19/17 Reported Lipitor (Atorvastatin Calcium) 20 Mg Tab 20 Mg PO DAILY 30 09/11/16 Reported Rocaltrol Cap (Calcitriol) 0.25 Mcg Cap 0.25 Mcg PO DAILY 09/11/16 Reported Prinivil (Lisinopril) 5 Mg Tab 5 Mg PO DAILY 09/11/16 Reported Imdur Ext Rel (Isosorbide Mononitrate) 30 Mg Tabcr 30 Mg PO QAM 09/11/16 Reported Coreg (Carvedilol) 3.125 Mg Tab 0.5 Tab PO BID 30 09/11/16 Reported Omeprazole 20 Mg Tab 20 Mg PO QPM 05/12/14 Reported TAKE 1 HR BEFORE DINNER Flomax (Tamsulosin Hcl) 0.4 Mg Cap 0.4 Mg PO DAILY 05/12/14 Reported Nitrostat (Nitroglycerin) 0.4 Mg Tab 0.4 Mg UT PRN 11/08/10 Reported Inpatient Medications: Current Inpatient Medications Medications (Trade) Dose Ordered Sig/Malachi Route Start Time Stop Time Status Last Admin Dose Admin Aspirin (Ecotrin Tab) 81 mg DAILY PO 06/20/17 09:00 07/20/17 08:59 06/20/17 08:38 81 MG Atorvastatin Calcium (Lipitor Tab) 20 mg DAILY PO 06/20/17 09:00 07/20/17 08:59 06/20/17 08:38 20 MG Calcitriol (Rocaltrol Cap) 0.25 mcg DAILY PO 06/20/17 09:00 07/20/17 08:59 06/20/17 08:38 0.25 MCG Carvedilol (Coreg Tab) 1.5625 mg BID PO 06/19/17 21:00 07/19/17 20:59 06/20/17 08:37 1.5625 MG Isosorbide Mononitrate (Imdur Ext Rel Tab) 30 mg QAM PO 06/20/17 09:00 07/20/17 08:59 06/20/17 08:40 30 MG Nitroglycerin (Nitrostat Tab) 0.4 mg PRN UT 06/19/17 18:30 07/19/17 18:29 Tamsulosin HCl (Flomax Cap) 0.4 mg DAILY PO 06/20/17 09:00 07/20/17 08:59 06/20/17 08:39 0.4 MG Review of Systems Review of Systems Constitutional: No fever, No chills Eyes: No blurred vision Neurological: No dizzy Gastrointestinal: No abdominal pain, No nausea Cardiovascular: No chest pain Respiratory: No shortness of breath Ears / Nose / Throat: No hearing loss Male : + see HPI, + frequent urination, + weak stream, + blood in urine, + kidney stones, + nocturia more than once/night, No urinary retention Physical Exam Vital Signs: Vital Signs Past 12 Hours Date Time Temp Pulse Resp B/P (MAP) Pulse Ox O2 Delivery O2 Flow Rate FiO2 06/20/17 11:24 36.9 77 16 133/78 (96) 95 Room Air 06/20/17 08:03 Room Air 06/20/17 07:22 36.4 75 16 128/75 (92) 94 Room Air 153/78 (103) 148/76 (100) 06/20/17 05:14 36.8 73 16 108/69 (82) 95 Room Air 06/20/17 04:00 Room Air 06/20/17 00:33 75 16 110/68 (82) 97 Room Air 119/72 (88) 115/67 (83) 06/20/17 00:00 Room Air 06/19/17 23:58 36.9 78 16 117/76 (90) 90 Room Air Physical Exam: General Appearance: WD/WN, no apparent distress ENT: hearing grossly normal Neck: no JVD Respiratory/Chest: no respiratory distress, no accessory muscle use Extremities: no pedal edema, no calf tenderness Neurologic/Psychiatric: alert, normal mood/affect, oriented x 3 Skin: normal color Assessment & Plan Assessment & Plan Hematuria One episode of gross hematuria. Never a smoker. Hx of stones. Notes bothersome urinary symptoms. Unsure if related to BPH or cystitis. Will await urine culture results. May need to add finasteride to tamsulosin for BPH. His PVR was unremarkable at 116 ml. Renal u/s does not show hydro or stones. Will get CT abd/pelvis of w/wo IV contrast to rule out stones especially given his hx and complaints of right sided flank pain. Will get with IV contrast in order to rule out masses or other urologic pathology. Send urine for cytology. Will need outpt cystoscopy to further evaluate bladder epithelium and complete workup. He is also on baby ASA. This could be contributing to hematuria. Creatinine is trending downward- no obstructive uropathy noted. Thanks for allowing us to participate in the care of this patient. We will follow along with primary service.
[2017-06-20 12:55] LABS: BUN/CREATININE RATIO 20.2 (10-20); CALCIUM 9.3 mg/dl (8.5-10.1); CREATININE 2.1 mg/dl (0.60-1.40); POTASSIUM 5.4 mmol/L (3.5-5.1)
--- NOTE | 2017-06-20 13:46 | DIAGNOSTIC IMAGING REPORT ---
CT SCAN OF THE ABDOMEN AND PELVIS WITHOUT CONTRAST CLINICAL HISTORY: Renal calculi. RENAL INSUFFICIENCY. COMPARISON STUDY: No previous studies for comparison. TECHNIQUE: CT scan of the abdomen and pelvis was performed from the lung bases to the proximal femurs. Images are reviewed in the axial, sagittal, and coronal planes. IV contrast was not administered for this examination. A dose lowering technique was utilized adhering to the principles of ALARA. CT DOSE: 256.08 mGycm FINDINGS: Lower chest: There is a moderate right pleural effusion and small left pleural effusion. Mild interstitial edema is suspected. The heart is enlarged. Liver: The unenhanced liver is normal in size, contour, and attenuation. There is no intrahepatic biliary ductal dilatation. There is an 11 mm right lobe hypodensity likely representing a cyst Gallbladder: Unremarkable. Spleen: Normal in size and attenuation. Pancreas: There is an equivocal 9 mm cyst within the pancreatic neck. Adrenal glands: Unremarkable. Kidneys: There are multiple tiny bilateral renal calculi. There are multiple bilateral renal cysts. The largest the right measures 5 cm. The largest on the left measures 3.4 cm. A 5 cm right renal cyst is complex demonstrating areas of rim calcification. No ureteral or bladder calculi are visualized. Bowel: There is severe diverticulosis. There are no acute peridiverticular inflammatory changes. The appendix is not visualized with certainty on this noncontrast study. There is distended debris-filled stomach Peritoneum: There is no intraperitoneal free air or abdominal ascites. Vasculature: The abdominal aorta is normal in course and caliber. Adenopathy: None. Pelvic viscera: The prostate is enlarged. The seminal vesicles are plump. Skeletal structures: No destructive osseous lesions are seen. IMPRESSION: 1. Distended debris-filled stomach 2. Severe pandiverticulosis. No evidence of acute diverticulitis 3. Moderate right pleural effusion, small left pleural effusion, cardiomegaly, and mild interstitial edema 4. Bilateral nonobstructing renal calculi. No ureteral or bladder calculi identified 5. Enlarged prostate. Prominence of the seminal vesicles Electronically signed by: Yared Hebert M.D. 06/20/2017 1:45 PM Dictated Date/Time: 06/20/2017 1:37 PM
--- NOTE | 2017-06-20 13:53 | CARDIOLOGY PROGRESS NOTE ---
DATE: 06/20/2017 DATE: 06/20/2017 FOLLOW-UP VISIT SUBJECTIVE: This is an 86-year-old male patient with a history of ischemic heart disease and chronic atrial fibrillation. He was admitted with hyperkalemia. He does have a history of chronic kidney disease followed by Dr. Bijal Balbuena. About a week ago he was seen in urgent care with some hematuria and started on Bactrim. He then was admitted with the hyperkalemia after blood draw at his primary care physician's office indicated worsening renal failure with creatinine 2.5 and hyperkalemia. The patient has since been seen by nephrology as well as urology. He has no new cardiac complaints. His troponins were borderline elevated due to his renal disease on admission. OBJECTIVE: GENERAL: He is alert and oriented. VITAL SIGNS: Blood pressure 130/80, pulse is irregular at 77 beats per minute. He is afebrile. HEAD, EYES, EARS, NOSE, AND THROAT: He is normocephalic. Pupils are equal and reactive to light. Extraocular muscles are intact bilaterally. NECK: The neck veins are flat. Carotids have good upstrokes bilaterally without bruits. Thyroid is nonpalpable. RESPIRATORY: Breath sounds equal bilaterally and clear to auscultation. CARDIOVASCULAR: Heart has an irregular rhythm. Normal S1, S2. GASTROINTESTINAL: Abdomen is soft, nontender without organomegaly. EXTREMITIES: Free of edema, digit clubbing, or cyanosis. NEUROLOGIC: Grossly intact. SKIN: Warm to touch. LYMPH NODES: Negative to palpation. IMPRESSIONS: 1. Chronic kidney disease. 2. Ischemic cardiomyopathy. 3. Status post coronary artery bypass surgery. RECOMMENDATIONS: From a cardiac standpoint, the patient is stable. As outlined above, he had a noncardiac elevation of his troponins due to his renal disease and dehydration. We plan no further cardiac testing this admission.
--- NOTE | 2017-06-20 15:10 | ECHOCARDIOGRAM REPORT ---
*NOTICE TO RECEIVING [employer] This information is strictly Confidential and protected under [place] law. [place] law prohibits you from making any further disclosure of this information unless further disclosure is expressly permitted by the written consent of the person to whom it pertains or is authorized by law. A general authorization for the release of medical or other information is not sufficient for this purpose. Hospital accepts no responsibility if the information is made available to any other person, INCLUDING THE PATIENT. Interpretation Summary * Conclusions -- * Aortic valve sclerosis moderate, without significant aortic valvular stenosis. * There is moderate concentric left ventricular hypertrophy. * Left ventricular systolic function is mildly reduced. * Ejection Fraction = 40-45%. * The right ventricular systolic function is normal. * The left atrium is moderately dilated. * The right atrium is moderately dilated. * There is severe mitral regurgitation. * There is severe tricuspid regurgitation. Procedure Details * A complete two-dimensional transthoracic echocardiogram was performed (2D, M-mode, Doppler and color flow Doppler). Left Ventricle * The left ventricle is normal in size. * There is moderate concentric left ventricular hypertrophy. * Ejection Fraction = 40-45%. * Left ventricular systolic function is mildly reduced. Right Ventricle * The right ventricle is normal size. * The right ventricular systolic function is normal. Atria * The left atrium is moderately dilated. * The right atrium is moderately dilated. * There is no evidence of atrial septal defect, but resolution does not allow assessment for a patent foramen ovale. Mitral Valve * The mitral valve is grossly normal. * There is severe mitral regurgitation. Tricuspid Valve * The tricuspid valve is not well visualized, but is grossly normal. * There is severe tricuspid regurgitation. Aortic Valve * Aortic valve sclerosis moderate, without significant aortic valvular stenosis. * There is no significant aortic regurgitation. Pulmonic Valve * The pulmonic valve is not well visualized. * Mild pulmonic valvular regurgitation. Great Vessels * The aortic root and proximal ascending aorta are normal sized. Pericardium/Pleural * There is no pericardial effusion. MMode 2D Measurements and Calculations IVSd 1.1 cm IVSs 1.3 cm LVIDd 3.6 cm LVIDs 2.8 cm LVPWd 10 cm LVPWs 1.3 cm IVS/LVPW 1.1 FS 22.4 % EDV(Teich) 53.2 ml ESV(Teich) 28.8 ml EF(Teich) 46.0 % EDV(cubed) 45.4 ml ESV(cubed) 21.3 ml EF(cubed) 53.2 % % IVS thick 12.9 % % LVPW thick 31.5 % LV mass(C)d 115.2 grams LV mass(C)dI 74.3 grams/m\S\2 LV mass(C)s 109.6 grams LV mass(C)sI 70.7 grams/m\S\2 CO(Teich) 1.9 l/min CI(Teich) 1.2 l/min/m\S\2 SV(Teich) 24.5 ml SI(Teich) 15.8 ml/m\S\2 CO(cubed) 1.9 l/min CI(cubed) 1.2 l/min/m\S\2 SV(cubed) 24.1 ml SI(cubed) 15.6 ml/m\S\2 Ao root diam 3.2 cm Ao root area 8.1 cm\S\2 ACS 1.5 cm LA dimension 4.3 cm asc Aorta Diam 3.1 cm LA/Ao 1.3 LVAd ap4 29.7 cm\S\2 LVLd ap4 8.2 cm EDV(MOD-sp4) 89.0 ml LVAs ap4 21.5 cm\S\2 LVLs ap4 7.7 cm ESV(MOD-sp4) 49.0 ml EF(MOD-sp4) 44.9 % LVAd ap2 21.5 cm\S\2 LVLd ap2 7.9 cm EDV(MOD-sp2) 48.0 ml LVAs ap2 16.9 cm\S\2 LVLs ap2 7.3 cm ESV(MOD-sp2) 31.0 ml EF(MOD-sp2) 35.4 % CO(MOD-sp4) 3.1 l/min CI(MOD-sp4) 2.0 l/min/m\S\2 SV(MOD-sp4) 40.0 ml SI(MOD-sp4) 25.8 ml/m\S\2 CO(MOD-sp2) 1.3 l/min CI(MOD-sp2) 0.84 l/min/m\S\2 SV(MOD-sp2) 17.0 ml SI(MOD-sp2) 11.0 ml/m\S\2 Doppler Measurements and Calculations MV E max tray 125.6 cm/sec MV A max tray 19.3 cm/sec MV E/A 6.5 MV P1/2t max tray 133.3 cm/sec MV P1/2t 37.6 msec MVA(P1/2t) 5.8 cm\S\2 MV dec slope 1037.6 cm/sec\S\2 MV dec time 0.17 sec Ao V2 max 89.9 cm/sec Ao max PG 3.2 mmHg Ao max PG (full) 2.4 mmHg AI max tray 380.1 cm/sec AI max PG 57.8 mmHg AI dec slope 278.8 cm/sec\S\2 AI P1/2t 399.3 msec LV V1 max PG 0.81 mmHg LV V1 max 45.0 cm/sec PA V2 max 60.8 cm/sec PA max PG 1.5 mmHg PI max tray 207.9 cm/sec PI max PG 17.3 mmHg PI dec slope 272.5 cm/sec\S\2 PI P1/2t 223.5 msec TR max tray 288.0 cm/sec
[2017-06-20] MEDS: PANTOprazole SOD 40 MG TAB PO SCH (20:16)
[2017-06-21 04:28] VITALS: BP 122/67; PULSE 73; TEMP 36.5; O2SAT 95
[2017-06-21 06:42] LABS: BUN/CREATININE RATIO 22.4 (10-20); CALCIUM 8.5 mg/dl (8.5-10.1); CREATININE 1.7 mg/dl (0.60-1.40); POTASSIUM 4.9 mmol/L (3.5-5.1)
[2017-06-21 07:51] VITALS: BP 127/79; PULSE 74; TEMP 36.5; O2SAT 95
[2017-06-21] MEDS: TAMSULOSIN HCL 0.4 MG CAP PO SCH (08:04)
[2017-06-21] MEDS: ATORVASTATIN 20 MG TAB PO SCH (08:04)
[2017-06-21] MEDS: ISOSORBIDE MONONITRATE 30 MG TABCR PO SCH (08:04)
[2017-06-21] MEDS: ASPIRIN 81 MG ECTAB PO SCH (08:04)
[2017-06-21] MEDS: CALCITRIOL 0.25 MCG CAP PO SCH (08:04)
[2017-06-21] MEDS: CARVEDILOL 3.125 MG TAB PO SCH ×2 (08:05→20:31)
--- NOTE | 2017-06-21 09:00 | Progress Note ---
Medicine Progress Note Date & Time of Visit: Jun 21, 2017 at 08:49. Subjective patient seen sitting in bed, reading the newspaper states he feels better today, appetite is better denies abdominal pain, nausea still has some frequency, nocturia, straining no cough, dyspnea no chest pain, palpitations, dizziness noted to by RN to have some episode of tachycardia 104-130s during breakfast patient asymptomatic Objective Last 8 Hrs Date Time Temp Pulse Resp B/P (MAP) Pulse Ox O2 Delivery O2 Flow Rate FiO2 06/21/17 07:55 Room Air 06/21/17 07:51 36.5 74 15 127/79 (95) 95 Room Air 06/21/17 04:28 36.5 73 18 122/67 (85) 95 Room Air 06/21/17 04:00 Room Air Physical Exam: General- oriented x 3, not in distress, speaks in sentences with no effort Eyes- anicteric Neck- supple, no JVD Lungs-mildly decreased breath sounds on the right base, clear on the left Heart- irregularly, irregular rhythm; no murmur, normal rate Abdomen- normal bowel sounds, soft, nontender Extremities- no pretibial edema, no calf tenderness Neuro- alert, oriented x 3; no gross focal deficits Skin- warm & dry Laboratory Results: Last 24 Hours Test 06/20/17 12:08 06/20/17 17:45 06/21/17 05:43 Sodium Level 138 mmol/L 138 mmol/L Potassium Level 5.4 mmol/L 5.2 mmol/L 4.9 mmol/L Chloride Level 105 mmol/L 109 mmol/L Carbon Dioxide Level 26 mmol/L 21 mmol/L Anion Gap 7.0 mmol/L 8.0 mmol/L Blood Urea Nitrogen 43 mg/dl 38 mg/dl Creatinine 2.10 mg/dl 1.70 mg/dl Est Creatinine Clear Calc Drug Dose 16.8 ml/min 20.6 ml/min Estimated GFR () 31.6 40.8 Estimated GFR (Non- 27.3 35.2 BUN/Creatinine Ratio 20.2 22.4 Random Glucose 103 mg/dl 94 mg/dl Calcium Level 9.3 mg/dl 8.5 mg/dl Date/Time Source Procedure Growth Status 06/20/17 12:30 Urine , Clean Catch Urine Culture Pending Received Assessment & Plan 86 year old male with history of CAD s/p [place], CABG, CHF 35%, A flutter, HTN, CKD 3 presenting with weakness. ACUTE RENAL FAILURE ON CKD STAGE III Creat is 2.6 (baseline 1.5) Likely due to Bactrim, with Lasix and Lisinopril Renal US- negative for hydronephrosis, + Cortical thinning and increase in cortical echogenicity consistent with renal insufficiency, + Multiple bilateral renal cysts. Received 1 liter IVF's in ER Nephro consulted no IV fluids for now to avoid volume overload given CHF Lasix, Lisinopril on hold -- crea further improved to 1.7 continue to monitor off Lasix appreciate Dr. Spears's input HYPERKALEMIA -- K on admission, 5.8 -- Kayexalate ordered K down to 4.9 RIGHT PLEURAL EFFUSION -- likely from CHF -- moderate amount as per CT -CXR from May 28, 2017: COMPARISON Chest x-ray dated CHEST 2 VIEWS AP OR PA AND LATERAL dated 11/29/2016; CHEST 2 VIEWS AP OR PA AND LATERAL dated 10/08/2016; CHEST 2 VIEWS AP OR PA AND LATERAL dated 07/26/2016; CHEST 2 VIEWS AP OR PA AND LATERAL dated 06/06/2011; CT THORAX WITHOUT CONTRAST dated 08/29/2016.. FINDINGS The lungs are well aerated. Stable bilateral pleural effusions, right greater than left are again noted. Streaky density in the right upper lobe likely represents atelectasis or scarring, and is better appreciated on previous CT of the thorax. There is volume loss in the right upper lobe and displacement of the right minor fissure. These findings are stable since the prior exam. Cardiac silhouette is unremarkable in size and contour. Median sternotomy wires are again noted. IMPRESSION Stable bilateral pleural effusions. Stable right upper lobe atelectasis -- no respiratory symptoms on room air -- will consult Pulmonary RECENT POSSIBLE UTI HISTORY OF BPH Treated with Bactrim since 06/14/17 with symptomatic improvement- discontinue due to CHANO Urine culture 06/14/17- multiple juan UA equivocal urine culture pending CT Pelvis: prostatomegaly PSA: 15 -- urinary symptoms just from prostatomegaly? -- Urology consulted RENAL CYSTS NEPHROLITHIASIS -- Ct pelvis: IMPRESSION: 1. Distended debris-filled stomach 2. Severe pandiverticulosis. No evidence of acute diverticulitis 3. Moderate right pleural effusion, small left pleural effusion, cardiomegaly , and mild interstitial edema 4. Bilateral nonobstructing renal calculi. No ureteral or bladder calculi identified 5. Enlarged prostate. Prominence of the seminal vesicles -- Urology on board ELEVATED TROPONIN -- ACS unlikely - Cardiology consulted - troponin 0.5, 0.4 - echo: Conclusions -- * Aortic valve sclerosis moderate, without significant aortic valvular stenosis. * There is moderate concentric left ventricular hypertrophy. * Left ventricular systolic function is mildly reduced. * Ejection Fraction = 40-45%. * The right ventricular systolic function is normal. * The left atrium is moderately dilated. * The right atrium is moderately dilated. * There is severe mitral regurgitation. * There is severe tricuspid regurgitation. - Continue aspirin, statin, beta rosina, Imdur ATRIAL FLUTTER Rate is controlled overall Continue carvedilol Coumadin previously discontinued in 07/2016 due to bleeding complication as per cardiology note -- continue to monitor CHRONIC SYSTOLIC CHF, EF 45-50% No acute decompensation Received 1 liter IVF's in ER -- echo as noted above -- OFF lasix for now due to acute renal failure euvolemic-on the dry side -- monitor OFF lasix PANCREATIC CYST equivocal on CT pelvis 9 mm cyst within the pancreatic neck. - monitor GERD Continue PPI CODE STATUS Full code per discussion on admission with patient and daughter at bedside. Daughter wishes to be updated on patient's condition (cell [phone]). DISPOSITION Follows with Dr. Collins for primary care anticipate d/c home when medically stable may need home health services Current Inpatient Medications: Current Inpatient Medications Medications (Trade) Dose Ordered Sig/Malachi Route Start Time Stop Time Status Last Admin Dose Admin Aspirin (Ecotrin Tab) 81 mg DAILY PO 06/20/17 09:00 07/20/17 08:59 06/21/17 08:04 81 MG Atorvastatin Calcium (Lipitor Tab) 20 mg DAILY PO 06/20/17 09:00 07/20/17 08:59 06/21/17 08:04 20 MG Calcitriol (Rocaltrol Cap) 0.25 mcg DAILY PO 06/20/17 09:00 07/20/17 08:59 06/21/17 08:04 0.25 MCG Carvedilol (Coreg Tab) 1.5625 mg BID PO 06/19/17 21:00 07/19/17 20:59 06/21/17 08:05 1.5625 MG Isosorbide Mononitrate (Imdur Ext Rel Tab) 30 mg QAM PO 06/20/17 09:00 07/20/17 08:59 06/21/17 08:04 30 MG Nitroglycerin (Nitrostat Tab) 0.4 mg PRN UT 06/19/17 18:30 07/19/17 18:29 Tamsulosin HCl (Flomax Cap) 0.4 mg DAILY PO 06/20/17 09:00 07/20/17 08:59 06/21/17 08:04 0.4 MG Pantoprazole Sodium (Protonix Tab) 40 mg QPM PO 06/20/17 21:00 07/20/17 20:59 06/20/17 20:16 40 MG
[2017-06-21 12:03] VITALS: BP 145/73; PULSE 94; O2SAT 97
--- NOTE | 2017-06-21 13:07 | PULMONARY CONSULTATION ---
DATE OF CONSULTATION: 06/21/2017 DATE OF CONSULTATION: 06/21/2017 TIME: 12:10 p.m. REPORT OF CONSULTATION: The patient was seen in room 287 bed 2. Consultation is requested regarding a right pleural effusion. HISTORY OF PRESENT ILLNESS: Mr. Nick is a very pleasant 86-year-old male who went to see his primary doctor on June 19. They did some lab work. They had called him back and told him to go to the ER because his potassium was elevated. It had been as high as 6.4. The patient's primary doctor is Dr. Chris Collins. He has been getting evaluated and treated for the elevated potassium and indeed his levels have come down. Today's potassium is 4.9. Consultation is requested because of the finding of a pleural effusion. His admission chest x-ray on 06/19/2017 showed a right pleural effusion which had increased compared with 10/08/2016. It appeared to have some degree of a subpulmonic effusion. There was also a very small left pleural effusion. Subsequently, he had a CAT scan of the abdomen and pelvis on 06/20/2017. This showed a moderate sized right pleural effusion and a small left effusion. The patient himself is not complaining of any significant shortness of breath. He relates that he can walk from room to room at home without any difficulty. He does have an upstairs in his home but he seldom goes up the steps. Every few weeks he goes up or something. He states he goes up slowly, but does not do too badly. He has a history of right pleural effusion. In fact, he had thoracentesis done by Dr. Kelly on 09/11/2016. At that time 1.3 liters of fluid was removed. He had followed back up in the pulmonary office in [place] and it was thought to be a transudative effusion. He had had a little bit of hemoptysis in the fall of 2015. They ultimately decided to just watch this. It seemed to resolve. He has not had any hemoptysis since then. The patient lives by himself. He states he has several children that live in the general area. He denies having any chest pain. He did have some back pain prior to coming in. He also has had recent symptoms compatible with urinary tract infection for which she was started on Bactrim. The patient denies any specific lung problems such as asthma, emphysema, tuberculosis, pneumonia or pleurisy. He has not smoked since he was a teenager. He did chew tobacco for a good part of his life. 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 He had some exposure to dust and perhaps some exposure to asbestos. PAST SURGICAL HISTORY: 1. Hernia repair. 2. Cataract surgery bilaterally. 3. Coronary artery bypass graft. PAST MEDICAL HISTORY: 1. AR x2. 2. Atrial flutter. 3. Mitral regurgitation which is severe. 4. Tricuspid regurgitation, severe. 5. Chronic kidney disease stage III. 6. BPH. 7. GERD. 8. Hypertension. 9. Systolic CHF. 10. Ischemic cardiomyopathy. 11. Nephrolithiasis. ALLERGIES: No known medication allergies. HE LISTS AN ALLERGY TO PEANUTS AND TOMATOES. REVIEW OF SYSTEMS: The patient's energy level has been a little lower than normal. He states his appetite is decreased. He thinks he has lost 5 pounds in the past 1 month. He states he just is not hungry. He has had mild constipation. A few weeks ago he had some coughing. On one occasion when he was in the bathroom he had some shortness of breath. His symptoms were relieved by taking a nitroglycerin. He has not had any chills, fevers or sweats. The remainder of the review of systems is negative except as noted above. MEDICATIONS: At home: 1. Aspirin 81 mg daily. 2. Lipitor 20 mg daily. 3. Calcitriol 0.25 mcg daily. 4. Coreg 0.5 mg b.i.d. 5. Furosemide 20 mg daily. 6. Isosorbide mononitrate 30 mg daily. 7. Lisinopril 5 mg daily. 8. Nitro p.r.n. 9. Omeprazole 20 mg daily. 10. Bactrim b.i.d. 11. Tamsulosin 0.4 mg daily. FAMILY HISTORY: Mother had CVA and father had heart disease. PHYSICAL EXAMINATION: VITAL SIGNS: The patient is a pleasant 86-year-old male who was cooperative, alert and oriented. He was in no distress. His weight is 50.3 kilograms. BMI is only 17.3. He states the most he ever weighed was about 130. HEAD, EYES, EARS, NOSE, AND THROAT: Eye exam suggested prior cataract surgery bilaterally. He has a deviated nasal septum. Mouth exam was unremarkable. NECK: Palpation of the neck reveals no lymph nodes. The neck veins were not overtly distended. CHEST: Inspection of the chest reveals pectus excavatum. There is a scar from prior cardiac surgery. HEART: Rate is 106 per minute. The rhythm is somewhat irregular. Blood pressure is 145/73. LUNGS: Auscultation of the lung ennis revealed diminished breath sounds especially at the right lower one-third. There is slight decreased breath sounds at the left lung base. There is dullness to percussion, especially at the right base. His respiratory rate was 20 breaths per minute, it was not labored. ABDOMEN: Soft. Bowel sounds are present. There was no tenderness to palpation, masses or organomegaly. EXTREMITIES: Showed no cyanosis, clubbing or edema. LABORATORY DATA: Electrolytes today show sodium 138, potassium 4.9, chloride 109, bicarbonate 21. The BUN today is 38 with a creatinine of 1.7. At the time of admission, the BUN was 41 with a creatinine of 2.5. Admission AST was 39, which would be just slightly elevated. ALT was normal at 41. Alk phos was normal at 73. Troponin was slightly elevated at 0.489. PSA is quite elevated at 15.5. White blood cell count is 8.76. Hemoglobin is 12.8. Platelets are 207,000. INR was 1.2 and PTT was 1. Urinalysis shows 10-30 WBCs, 10-30 RBCs, negative bacteria, +1 blood, and +1 glucose was noted. IMPRESSIONS: 1. Bilateral pleural effusions -- right greater than left -- transudate as per her prior thoracentesis. 2. Coronary artery disease. 3. Hyperkalemia -- resolved. The case was discussed with Dr. Vidal. The patient has a pleural effusion but with few symptoms. He indicated he had spoken with the patient's daughter who would prefer not to do a thoracentesis unless absolutely necessary. There has been some gradual increase in fluid compared with last September. I don't know however if it is changed compared with the summer. He had some x-rays done as an outpatient and the x-rays are not available in our computer. In light of the fact he seems to have few symptoms I have no problem with a wait and see perspective. I believe he has enough fluid to be tapped if necessary. The patient has been seen by Carmen Schilling and Dr. Kelly in the past. If it was felt that he needed pulmonary followup he could be referred back to them. Alternatively, if the patient was still in the hospital the next few days and it was thought that a thoracentesis would be done please contact Dr. Kelly regarding this. Thus, for now I do not think it is unreasonable for simply cautious observation.
[2017-06-21 15:20] VITALS: BP 122/71; PULSE 78; TEMP 36.5; O2SAT 96
--- NOTE | 2017-06-21 18:24 | Cardiology Follow-Up ---
Subjective General Date of Service: Jun 21, 2017. Chief Complaint: follow up CAD, chronic systolic HF Pt evaluation today including: conversation w/ patient, physical exam History of Present Illness The patient is a 86 year old male seen in follow up. Pt feels well. Denies shortness of breath. Allergies Coded Allergies: Peanut (Verified Allergy, Intermediate, RASH, 09/11/16) Tomato (Verified Allergy, Intermediate, RASH, 09/11/16) No Known Drug Allergy (Verified Allergy, Unknown, ., 06/27/16) Social History Smoking Status: Unknown if Ever Smoked Hx Tobacco Use In Past Year?: No Hx Alcohol Use - Type And Amou: No Hx Substance Use - Type And Am: No Problem List Medical Problems: (1) Acute renal failure Status: Acute (2) NSTEMI (non-ST elevated myocardial infarction) Status: Acute Physical Exam Vital Signs Last Vital Signs Documentation Date Time Temp Pulse Resp B/P (MAP) Pulse Ox O2 Delivery O2 Flow Rate FiO2 06/21/17 16:00 Room Air 06/21/17 15:20 36.5 78 16 122/71 (88) 96 Physical Exam Constitutional: Level of Distress: NAD Neck: supple Lungs: Auscultation: pertinent finding (decreased BS at right base) Cardiovascular: Heart Auscultation: II/ GARFIELD, irregular rate rhythm Abdomen: Bowel Sounds: normal Inspection & Palpation: non-distended, no tenderness, guarding & rebound Extremities: no edema Neurologic: Gait & Station: pertinent finding (no focal deficits ) Assessment and Plan Assessment and Plan Impression: 86 year old male 1. s/p UTI then CHANO and hyperkalemia, all improving 2. Chronic HF due to CAD, LV systolic dysfunction, severe MR, Severe TR, chronic atrial flutter 3. H/o ischemic EKG changes at outpt, present also this admission without current anginal complaints 4. History of multiple myocardial infarctions with inferior ST segment elevation myocardial infarction June,, saphenous vein graft RCA was the culprit which was treated medically, not amenable to PCI 5. Off of coumadin due to bleeding complication, coumadin started due to atrial flutter in May,, discontinued 07/2016 6. Past GI bleeding for which plavix was discontinued 7. Right sided thoracentesis fall 2015, small residual R > pleural effusion on CXR 05/2017 at [facility] Plan: Renal function and potassium trending toward improvement. Diuretic therapy limited at baseline due to low bp. Pt denies SOB if this is stable would continue conservative observation of pleural effusion. Not on pharmacologic DVT prophylaxis due to bleeding risk. Laboratory Results Last 24 Hours Test 06/21/17 05:43 Sodium Level 138 mmol/L Potassium Level 4.9 mmol/L Chloride Level 109 mmol/L Carbon Dioxide Level 21 mmol/L Anion Gap 8.0 mmol/L Blood Urea Nitrogen 38 mg/dl Creatinine 1.70 mg/dl Est Creatinine Clear Calc Drug Dose 20.6 ml/min Estimated GFR () 40.8 Estimated GFR (Non- 35.2 BUN/Creatinine Ratio 22.4 Random Glucose 94 mg/dl Calcium Level 8.5 mg/dl
[2017-06-21 20:21] VITALS: BP 133/78; PULSE 87; TEMP 36.7; O2SAT 96
[2017-06-21] MEDS: PANTOprazole SOD 40 MG TAB PO SCH (20:31)
[2017-06-22 00:04] VITALS: BP 117/72; PULSE 77; TEMP 36.8; O2SAT 95
[2017-06-22 04:25] VITALS: BP 137/65; PULSE 82; TEMP 36.4; O2SAT 96
[2017-06-22 07:40] VITALS: BP 132/72; PULSE 81; TEMP 36.3; O2SAT 96
[2017-06-22] MEDS: CALCITRIOL 0.25 MCG CAP PO SCH (08:01)
[2017-06-22] MEDS: CARVEDILOL 3.125 MG TAB PO SCH (08:01)
[2017-06-22] MEDS: TAMSULOSIN HCL 0.4 MG CAP PO SCH (08:01)
[2017-06-22] MEDS: ASPIRIN 81 MG ECTAB PO SCH (08:01)
[2017-06-22] MEDS: ISOSORBIDE MONONITRATE 30 MG TABCR PO SCH (08:01)
[2017-06-22] MEDS: ATORVASTATIN 20 MG TAB PO SCH (08:01)
[2017-06-22 08:15] LABS: BUN/CREATININE RATIO 18.9 (10-20); CALCIUM 8.5 mg/dl (8.5-10.1); CREATININE 1.8 mg/dl (0.60-1.40); POTASSIUM 4.4 mmol/L (3.5-5.1)
--- NOTE | 2017-06-22 09:33 | Progress Note ---
Medicine Progress Note Date & Time of Visit: Jun 22, 2017 at 09:33. Subjective seen sitting on bedside chair, comfortable states he feels better overall denies dysuria, straining, still has nocturia denies chest pain dyspnea, palpitations, dizziness states he is back to baseline ok to be discharged today no other symptoms Objective Last 8 Hrs Date Time Temp Pulse Resp B/P (MAP) Pulse Ox O2 Delivery O2 Flow Rate FiO2 06/22/17 08:00 Room Air 06/22/17 07:40 36.3 81 16 132/72 (92) 96 Room Air 06/22/17 04:25 36.4 82 16 137/65 (89) 96 Room Air 06/22/17 04:00 Room Air Physical Exam: General- oriented x 3, not in distress, speaks in sentences with no effort Eyes- anicteric Neck- , no JVD Lungs-clear breath sounds left, mild decrease BS on the left base Heart- irregularly, irregular rhythm; no murmur, normal rate Abdomen- normal bowel sounds, soft, nontender Extremities- no pretibial edema, no calf tenderness Neuro- alert, oriented x 3; no gross focal deficits Skin- warm & dry Laboratory Results: Last 24 Hours Test 06/22/17 06:55 Sodium Level 137 mmol/L Potassium Level 4.4 mmol/L Chloride Level 106 mmol/L Carbon Dioxide Level 23 mmol/L Anion Gap 8.0 mmol/L Blood Urea Nitrogen 34 mg/dl Creatinine 1.80 mg/dl Est Creatinine Clear Calc Drug Dose 19.3 ml/min Estimated GFR () 38.1 Estimated GFR (Non- 32.9 BUN/Creatinine Ratio 18.9 Random Glucose 81 mg/dl Calcium Level 8.5 mg/dl Assessment & Plan 86 year old male with history of CAD s/p [place], CABG, CHF 35%, A flutter, HTN, CKD 3 presenting with weakness. ACUTE RENAL FAILURE ON CKD STAGE III Creat is 2.6 (baseline 1.5) Likely due to Bactrim, with Lasix and Lisinopril Renal US- negative for hydronephrosis, + Cortical thinning and increase in cortical echogenicity consistent with renal insufficiency, + Multiple bilateral renal cysts. Received 1 liter IVF's in ER Nephro consulted no IV fluids for now to avoid volume overload given CHF Lasix, Lisinopril held -- crea further improved to 1.[address] Torres- resume Lasix 20mg po daily hold Lisinopril ff up with PCP within 3-5 days to check PRP HYPERKALEMIA -- K on admission, 5.8 -- Kayexalate ordered -- K down to 4.4 -- repeat K as outpatient RIGHT PLEURAL EFFUSION -- likely from CHF -- moderate amount as per CT Pelvis - CXR from May 28, 2017: Stable bilateral pleural effusions. Stable right upper lobe atelectasis -- no respiratory symptoms no supplemental oxygen required -- Pulmonary consulted Dr. Forrest patient had previous thoracentesis revealing transudative pleural effusion -- discussed with daughter, she is declining thoracentesis for now -- continue to monitor as outpatient ff up with Director Of Clinical Services Dr. Kelly as outpatient RECENT POSSIBLE UTI HISTORY OF BPH Treated with Bactrim since 06/14/17 with symptomatic improvement- discontinued due to acute renal failure Urine culture 06/14/17- multiple juan repeat urine culture as inpatient: negative CT Pelvis: Bilateral nonobstructing renal calculi. No ureteral or bladder calculi identified Enlarged prostate. Prominence of the seminal vesicles PSA: 15 -- Urology consulted, Dr. Hernandez, recommendations: may need Finasteride Ff up urine cytology. Will need outpt cystoscopy to further evaluate bladder epithelium and complete workup. ff up with Dr. Will- [facility] Urologist in 1 week RENAL CYSTS NEPHROLITHIASIS -- Ct pelvis: 1. Distended debris-filled stomach 2. Severe pandiverticulosis. No evidence of acute diverticulitis 3. Moderate right pleural effusion, small left pleural effusion, cardiomegaly , and mild interstitial edema 4. Bilateral nonobstructing renal calculi. No ureteral or bladder calculi identified 5. Enlarged prostate. Prominence of the seminal vesicles -- ff up with Dr. Seth [facility] Urologist in 1 week ELEVATED TROPONIN -- ACS unlikely - Cardiology consulted, no further interventions at this time - troponin 0.5, 0.4 - echo: Conclusions -- * Aortic valve sclerosis moderate, without significant aortic valvular stenosis. * There is moderate concentric left ventricular hypertrophy. * Left ventricular systolic function is mildly reduced. * Ejection Fraction = 40-45%. * The right ventricular systolic function is normal. * The left atrium is moderately dilated. * The right atrium is moderately dilated. * There is severe mitral regurgitation. * There is severe tricuspid regurgitation. - Continue aspirin, statin, beta rosina, Imdur ATRIAL FLUTTER Rate is controlled overall Continue carvedilol Coumadin previously discontinued in 07/2016 due to bleeding complication as per cardiology note CHRONIC SYSTOLIC CHF, EF 45-50% No acute decompensation -- echo as noted above -- Lasix was held Nephrology recommends to continue Lisinopril monitor crea PANCREATIC CYST equivocal on CT pelvis 9 mm cyst within the pancreatic neck - monitor as outpatient CODE STATUS Full code per discussion on admission with patient and daughter at bedside DISPOSITION d/c home ff up with Dr. Collins in 1 week ff up with Urologist in 1 week Current Inpatient Medications: Current Inpatient Medications Medications (Trade) Dose Ordered Sig/Malachi Route Start Time Stop Time Status Last Admin Dose Admin Aspirin (Ecotrin Tab) 81 mg DAILY PO 06/20/17 09:00 07/20/17 08:59 06/22/17 08:01 81 MG Atorvastatin Calcium (Lipitor Tab) 20 mg DAILY PO 06/20/17 09:00 07/20/17 08:59 06/22/17 08:01 20 MG Calcitriol (Rocaltrol Cap) 0.25 mcg DAILY PO 06/20/17 09:00 07/20/17 08:59 06/22/17 08:01 0.25 MCG Carvedilol (Coreg Tab) 1.5625 mg BID PO 06/19/17 21:00 07/19/17 20:59 06/22/17 08:01 1.5625 MG Isosorbide Mononitrate (Imdur Ext Rel Tab) 30 mg QAM PO 06/20/17 09:00 07/20/17 08:59 06/22/17 08:01 30 MG Nitroglycerin (Nitrostat Tab) 0.4 mg PRN UT 06/19/17 18:30 07/19/17 18:29 Tamsulosin HCl (Flomax Cap) 0.4 mg DAILY PO 06/20/17 09:00 07/20/17 08:59 06/22/17 08:01 0.4 MG Pantoprazole Sodium (Protonix Tab) 40 mg QPM PO 06/20/17 21:00 07/20/17 20:59 06/21/17 20:31 40 MG
--- NOTE | 2017-06-22 09:35 | Progress Note ---
Medicine Progress Note Date & Time of Visit: Jun 22, 2017 at 09:35. Objective Last 8 Hrs Date Time Temp Pulse Resp B/P (MAP) Pulse Ox O2 Delivery O2 Flow Rate FiO2 06/22/17 08:00 Room Air 06/22/17 07:40 36.3 81 16 132/72 (92) 96 Room Air 06/22/17 04:25 36.4 82 16 137/65 (89) 96 Room Air 06/22/17 04:00 Room Air Physical Exam: General- oriented x 3, not in distress, speaks in sentences with no effort Eyes- anicteric Neck- supple, no JVD Lungs-mildly decreased breath sounds on the right base, clear on the left Heart- irregularly, irregular rhythm; no murmur, normal rate Abdomen- normal bowel sounds, soft, nontender Extremities- no pretibial edema, no calf tenderness Neuro- alert, oriented x 3; no gross focal deficits Skin- warm & dry Laboratory Results: Last 24 Hours Test 06/22/17 06:55 Sodium Level 137 mmol/L Potassium Level 4.4 mmol/L Chloride Level 106 mmol/L Carbon Dioxide Level 23 mmol/L Anion Gap 8.0 mmol/L Blood Urea Nitrogen 34 mg/dl Creatinine 1.80 mg/dl Est Creatinine Clear Calc Drug Dose 19.3 ml/min Estimated GFR () 38.1 Estimated GFR (Non- 32.9 BUN/Creatinine Ratio 18.9 Random Glucose 81 mg/dl Calcium Level 8.5 mg/dl Assessment & Plan 86 year old male with history of CAD s/p [place], CABG, CHF 35%, A flutter, HTN, CKD 3 presenting with weakness. ACUTE RENAL FAILURE ON CKD STAGE III Creat is 2.6 (baseline 1.5) Likely due to Bactrim, with Lasix and Lisinopril Renal US- negative for hydronephrosis, + Cortical thinning and increase in cortical echogenicity consistent with renal insufficiency, + Multiple bilateral renal cysts. Received 1 liter IVF's in ER Nephro consulted no IV fluids for now to avoid volume overload given CHF Lasix, Lisinopril on hold -- crea further improved to 1.7 continue to monitor off Lasix appreciate Dr. Spears's input HYPERKALEMIA -- K on admission, 5.8 -- Kayexalate ordered K down to 4.9 RIGHT PLEURAL EFFUSION -- likely from CHF -- moderate amount as per CT -CXR from May 28, 2017: COMPARISON Chest x-ray dated CHEST 2 VIEWS AP OR PA AND LATERAL dated 11/29/2016; CHEST 2 VIEWS AP OR PA AND LATERAL dated 10/08/2016; CHEST 2 VIEWS AP OR PA AND LATERAL dated 07/26/2016; CHEST 2 VIEWS AP OR PA AND LATERAL dated 06/06/2011; CT THORAX WITHOUT CONTRAST dated 08/29/2016.. FINDINGS The lungs are well aerated. Stable bilateral pleural effusions, right greater than left are again noted. Streaky density in the right upper lobe likely represents atelectasis or scarring, and is better appreciated on previous CT of the thorax. There is volume loss in the right upper lobe and displacement of the right minor fissure. These findings are stable since the prior exam. Cardiac silhouette is unremarkable in size and contour. Median sternotomy wires are again noted. IMPRESSION Stable bilateral pleural effusions. Stable right upper lobe atelectasis -- no respiratory symptoms on room air -- will consult Pulmonary RECENT POSSIBLE UTI HISTORY OF BPH Treated with Bactrim since 06/14/17 with symptomatic improvement- discontinue due to CHANO Urine culture 06/14/17- multiple juan UA equivocal urine culture pending CT Pelvis: prostatomegaly PSA: 15 -- urinary symptoms just from prostatomegaly? -- Urology consulted RENAL CYSTS NEPHROLITHIASIS -- Ct pelvis: IMPRESSION: 1. Distended debris-filled stomach 2. Severe pandiverticulosis. No evidence of acute diverticulitis 3. Moderate right pleural effusion, small left pleural effusion, cardiomegaly , and mild interstitial edema 4. Bilateral nonobstructing renal calculi. No ureteral or bladder calculi identified 5. Enlarged prostate. Prominence of the seminal vesicles -- Urology on board ELEVATED TROPONIN -- ACS unlikely - Cardiology consulted - troponin 0.5, 0.4 - echo: Conclusions -- * Aortic valve sclerosis moderate, without significant aortic valvular stenosis. * There is moderate concentric left ventricular hypertrophy. * Left ventricular systolic function is mildly reduced. * Ejection Fraction = 40-45%. * The right ventricular systolic function is normal. * The left atrium is moderately dilated. * The right atrium is moderately dilated. * There is severe mitral regurgitation. * There is severe tricuspid regurgitation. - Continue aspirin, statin, beta rosina, Imdur ATRIAL FLUTTER Rate is controlled overall Continue carvedilol Coumadin previously discontinued in 07/2016 due to bleeding complication as per cardiology note -- continue to monitor CHRONIC SYSTOLIC CHF, EF 45-50% No acute decompensation Received 1 liter IVF's in ER -- echo as noted above -- OFF lasix for now due to acute renal failure euvolemic-on the dry side -- monitor OFF lasix PANCREATIC CYST equivocal on CT pelvis 9 mm cyst within the pancreatic neck. - monitor GERD Continue PPI CODE STATUS Full code per discussion on admission with patient and daughter at bedside. Daughter wishes to be updated on patient's condition (cell [phone]). DISPOSITION Follows with Dr. Collins for primary care anticipate d/c home when medically stable may need home health services Current Inpatient Medications: Current Inpatient Medications Medications (Trade) Dose Ordered Sig/Malachi Route Start Time Stop Time Status Last Admin Dose Admin Aspirin (Ecotrin Tab) 81 mg DAILY PO 06/20/17 09:00 07/20/17 08:59 06/22/17 08:01 81 MG Atorvastatin Calcium (Lipitor Tab) 20 mg DAILY PO 06/20/17 09:00 07/20/17 08:59 06/22/17 08:01 20 MG Calcitriol (Rocaltrol Cap) 0.25 mcg DAILY PO 06/20/17 09:00 07/20/17 08:59 06/22/17 08:01 0.25 MCG Carvedilol (Coreg Tab) 1.5625 mg BID PO 06/19/17 21:00 07/19/17 20:59 06/22/17 08:01 1.5625 MG Isosorbide Mononitrate (Imdur Ext Rel Tab) 30 mg QAM PO 06/20/17 09:00 07/20/17 08:59 06/22/17 08:01 30 MG Nitroglycerin (Nitrostat Tab) 0.4 mg PRN UT 06/19/17 18:30 07/19/17 18:29 Tamsulosin HCl (Flomax Cap) 0.4 mg DAILY PO 06/20/17 09:00 07/20/17 08:59 06/22/17 08:01 0.4 MG Pantoprazole Sodium (Protonix Tab) 40 mg QPM PO 06/20/17 21:00 07/20/17 20:59 06/21/17 20:31 40 MG
[2017-06-22 10:42] VITALS: BP 132/72; PULSE 68; O2SAT 97
[2017-06-22 12:02] VITALS: BP 139/77; PULSE 76; TEMP 36.5; O2SAT 97
[2017-06-22 15:06] VITALS: BP 118/72; PULSE 84; TEMP 36.5; O2SAT 96
--- NOTE | 2017-06-22 15:27 | Discharge Instructions ---
Discharge Instructions Date of Service Jun 22, 2017. Admission Reason for Admission: Vinnie, Elevated Troponin, Hyperkalemia Discharge Discharge Diagnosis / Problem: ACUTE RENAL FAILURE, ELEVATED POTASSIUM Discharge Goals Goal(s): Diagnostic testing, Therapeutic intervention Activity Recommendations Activity Limitations: resume your previous activity . Instructions / Follow-Up Instructions / Follow-Up PLEASE REVIEW YOUR NEW MEDICATION LIST AND FOLLOW INSTRUCTIONS CAREFULLY. STOP TAKING LISINOPRIL. DR. CASANOVA WILL INFORM YOU WHEN TO RESTART THIS MEDICATION. NO NSAIDS- IBUPROFEN, NAPROXEN, ETC. FOLLOW UP WITH DR. CASANOVA IN 3-5 DAYS. (CLINIC TO CALL YOU FOR APPOINTMENT DATE) . FOLLOW UP WITH UROLOGIST DR. KANDIS HERNÁNDEZ IN 1 WEEK. TEL NO. Call your Primary Care doctor if any of the following symptoms or problems start or get worse: * Shortness of breath or difficulty breathing * Wake up at night short of breath * Chest pain * Cough * Swelling of your hands, feet, or legs * More fatigued or tired with your normal activity * Palpitations - sudden fast heart beats WEIGHT * Weigh yourself every morning after using the bathroom. * Use the same scale. * Wear the same amount of clothing. * Write your weight down on a chart. * Call your Primary Care doctor if you gain more than 2-3 pounds in 1-2 days. MEDICATIONS * Use this discharge instruction sheet for medication instructions. * Take your medications at the time your doctor ordered. * Do not skip a dose of your medicines. * If you miss a dose of medicine, take it as soon as possible, but DO NOT DOUBLE A DOSE. * Read your medicine information when you get home. * Know all of the side effects of your medicine. If in doubt, ask your pharmacist * Call your Primary Care doctor's office if you have any side effects. * Be sure all of your doctors know what medicine and herbs you take (including cold, flu, and herbal medicine). Take the following with you to your follow-up doctor appointments: * Weight Chart * Medication List * List of questions Do not drink excessive alcohol, beer or wine. Current Hospital Diet Patient's current hospital diet: Renal Diet Discharge Diet Recommended Diet: AHA Diet (Heart Healthy) (LOW POTASSIUM DIET- NO BANANAS, ORANGES, TOMATOES) Fluid Restriction: 2000 ml (8 cups) Procedures Procedures Performed: 2 D ECHO, CT SCAN OF ABDOMEN AND PELVIS Pending Studies Studies pending at discharge: yes List of pending studies: REPEAT BLOOD WORK C/O PRIMARY CARE PHYSICIAN Medical Emergencies . Who to Call and When: Call 911 or go to the Emergency Room if: * If at any time you feel your situation is an emergency * You have tightness or pain in your chest that does not go away with rest or Nitroglycerin * You are very short of breath even with rest . Non-Emergent Contact Non-Emergency issues call your: Primary Care Provider Call Non-Emergent contact if: you have a fever, you have any medication questions . . "Provider Documentation" section prepared by Bladimri Vidal. . VTE Core Measure Inpt VTE Proph given/why not?: SCD's
--- NOTE | 2017-06-22 15:32 | Discharge Summary ---
Discharge Summary Date of Service Jun 22, 2017. Discharge Summary Admission Date: Jun 19, 2017 at 17:30 Discharge Date: Jun 22, 2017 Discharge Disposition: Home Principal Diagnosis: ACUTE RENAL FAILURE ON CKD STAGE III Secondary Diagnoses/Problems: Please refer to hospital course below. Procedures: CT SCAN OF THE ABDOMEN AND PELVIS WITHOUT CONTRAST CLINICAL HISTORY: Renal calculi. RENAL INSUFFICIENCY. COMPARISON STUDY: No previous studies for comparison. TECHNIQUE: CT scan of the abdomen and pelvis was performed from the lung bases to the proximal femurs. Images are reviewed in the axial, sagittal, and coronal planes. IV contrast was not administered for this examination. A dose lowering technique was utilized adhering to the principles of ALARA. CT DOSE: 256.08 mGycm FINDINGS: Lower chest: There is a moderate right pleural effusion and small left pleural effusion. Mild interstitial edema is suspected. The heart is enlarged. Liver: The unenhanced liver is normal in size, contour, and attenuation. There is no intrahepatic biliary ductal dilatation. There is an 11 mm right lobe hypodensity likely representing a cyst Gallbladder: Unremarkable. Spleen: Normal in size and attenuation. Pancreas: There is an equivocal 9 mm cyst within the pancreatic neck. Adrenal glands: Unremarkable. Kidneys: There are multiple tiny bilateral renal calculi. There are multiple bilateral renal cysts. The largest the right measures 5 cm. The largest on the left measures 3.4 cm. A 5 cm right renal cyst is complex demonstrating areas of rim calcification. No ureteral or bladder calculi are visualized. Bowel: There is severe diverticulosis. There are no acute peridiverticular inflammatory changes. The appendix is not visualized with certainty on this noncontrast study. There is distended debris-filled stomach Peritoneum: There is no intraperitoneal free air or abdominal ascites. Vasculature: The abdominal aorta is normal in course and caliber. Adenopathy: None. Pelvic viscera: The prostate is enlarged. The seminal vesicles are plump. Skeletal structures: No destructive osseous lesions are seen. IMPRESSION: 1. Distended debris-filled stomach 2. Severe pandiverticulosis. No evidence of acute diverticulitis 3. Moderate right pleural effusion, small left pleural effusion, cardiomegaly, and mild interstitial edema 4. Bilateral nonobstructing renal calculi. No ureteral or bladder calculi identified 5. Enlarged prostate. Prominence of the seminal vesicles CHEST ONE VIEW PORTABLE CLINICAL HISTORY: CHANO, hyperkalemia, troponin elevation COMPARISON STUDY: 10/08/2016 FINDINGS: There are postsurgical changes of a midline sternotomy. The heart is enlarged. There is mild interstitial pulmonary edema. There is a small left pleural effusion, and increasing small to moderate right pleural effusion. Basilar opacities likely reflect compressive atelectatic changes/edema. IMPRESSION: 1. Increasing right pleural effusion, and persistent small left pleural effusion 2. Cardiomegaly and mild interstitial edema. (RENAL)RETROPERITON COMP HISTORY: Renal insufficiency Pt c/o ARF COMPARISON: None. FINDINGS: Right kidney: Maximum dimension 10.2 cm. No evidence for hydronephrosis. Several right renal cysts measuring up to 4.5 cm. Moderate cortical thinning with a moderate increase in cortical echogenicity. Left kidney: Maximum dimension 9.5 cm. No evidence for hydronephrosis. Several cysts measuring to 3.5 cm. Moderate cortical thinning and increase in cortical echogenicity. Bladder: No bladder wall thickening. The bilateral ureteral jets were identified. IMPRESSION: 1. Cortical thinning and increase in cortical echogenicity consistent with renal insufficiency. 2. Multiple bilateral renal cysts. 3. No evidence for hydronephrosis. ECHO: Interpretation Summary * Conclusions -- * Aortic valve sclerosis moderate, without significant aortic valvular stenosis. * There is moderate concentric left ventricular hypertrophy. * Left ventricular systolic function is mildly reduced. * Ejection Fraction = 40-45%. * The right ventricular systolic function is normal. * The left atrium is moderately dilated. * The right atrium is moderately dilated. * There is severe mitral regurgitation. * There is severe tricuspid regurgitation. Procedure Details * A complete two-dimensional transthoracic echocardiogram was performed ( 2D, M-mode, Doppler and color flow Doppler). Left Ventricle * The left ventricle is normal in size. * There is moderate concentric left ventricular hypertrophy. * Ejection Fraction = 40-45%. * Left ventricular systolic function is mildly reduced. Right Ventricle * The right ventricle is normal size. * The right ventricular systolic function is normal. Atria * The left atrium is moderately dilated. * The right atrium is moderately dilated. * There is no evidence of atrial septal defect, but resolution does not allow assessment for a patent foramen ovale. Mitral Valve * The mitral valve is grossly normal. * There is severe mitral regurgitation. Tricuspid Valve * The tricuspid valve is not well visualized, but is grossly normal. * There is severe tricuspid regurgitation. Aortic Valve * Aortic valve sclerosis moderate, without significant aortic valvular stenosis. * There is no significant aortic regurgitation. Pulmonic Valve * The pulmonic valve is not well visualized. * Mild pulmonic valvular regurgitation. Great Vessels * The aortic root and proximal ascending aorta are normal sized. Pericardium/Pleural * There is no pericardial effusion. Consultations: ENGINEERING OPERATIONS LEADER DR. BUENROSTRO, AIRPORT ELECTRICIAN DR. MYERS Pending Studies/Follow-Up: REPEAT PRP ON FOLLOW UP 3-5 DAYS AFTER DISCHARGE; PLEASE REFER TO HOSPITAL COURSE BELOW. Medication Reconciliation Continued Medications: Aspirin (Aspirin Chewable) 81 Mg Chew 81 MG PO DAILY, TAB Atorvastatin (Lipitor) 20 Mg Tab 20 MG PO DAILY for 30 Days, #30 TAB 5 Refills Calcitriol (Rocaltrol Cap) 0.25 Mcg Cap 0.25 MCG PO DAILY, CAP Carvedilol (Coreg) 3.125 Mg Tab 0.5 TAB PO BID for 30 Days, #30 TAB 3 Refills Furosemide (Furosemide) 20 Mg Tab 20 MG PO DAILY Isosorbide Mononitrate Ext Rel (Imdur Ext Rel) 30 Mg Tabcr 30 MG PO QAM, TAB Nitroglycerin (Nitrostat) 0.4 Mg Tab 0.4 MG UT PRN Omeprazole (Omeprazole) 20 Mg Tab 20 MG PO QPM TAKE 1 HR BEFORE DINNER Tamsulosin Hcl (Flomax) 0.4 Mg Cap 0.4 MG PO DAILY, CAP Discontinued Medications: Lisinopril (Prinivil) 5 Mg Tab 5 MG PO DAILY, TAB Sulfamethoxazole-Trimethoprim (Bactrim Ds 800MG/160MG) 1 Tab Tab 1 TAB PO BID for 7 Days, #14 TAB Admission Information HPI (per Admitting provider): This is an 86 y/o male with PMH of CAD s/p multiple IN's, s/p CABG x 4 in 1995, s/p inferior STEMI June 2010 at which time cardiac cath showed complete occlusion of SVG to RCA which was not amenable to PCI and was treated medically , chronic systolic CHF, EF 45-50%, atrial flutter, off Coumadin since 08/07/2016 due to bleeding complication, HTN, HL, CKD stage III, and other problems listed below who was sent to the ED by Dr. Collins for abnormal labs. Patient follows with Dr. Anderson for cardiology. Patient was seen in urgent care for dysuria on 06/14/17 and placed on Bactrim for possible UTI. Urine culture 06/14/17 grew mixed juan. Has been taking Bactrim since that time with improvement of urinary symptoms, however has been feeling fatigued with poor appetite. He was seen by Dr. Collins today. Outpatient labs today showed Creat of 2.3 (basline 1.5 ) and potassium 6.4. Patient was sent to ER, where creat =2.6 and potassium= 5.8. He was treated with insulin and dextrose, albuterol, calcium gluconate, and 1 liter of NSS. Patient denies fever, chest pain, SOB, N/V/D, edema, weight gain. States he did feel SOB last week for which he took nitro, but denies any similar symptoms today. Denies NSAID use. Physical Exam (per Admitting): General Appearance: no apparent distress, + thin, + pertinent finding ( alert elderly male, no distress, daughter at bedside) Head: normocephalic, atraumatic Eyes: normal inspection, EOMI, sclerae normal ENT: normal ENT inspection, hearing grossly normal Neck: trachea midline, + JVD Respiratory/Chest: lungs clear, normal breath sounds, no respiratory distress, no accessory muscle use Cardiovascular: regular rate, rhythm, + pertinent finding (murmur not appreciated) Abdomen/GI: non tender, soft Extremities/Musculoskelatal: normal inspection, no calf tenderness, no pedal edema, + pertinent finding (no focal deficit on gross examination) Neurologic/Psych: alert, normal mood/affect, oriented x 3 Skin: normal color, warm/dry Hospital Course 86 year old male with history of CAD s/p IN, CABG, CHF 35%, A flutter, HTN, CKD 3 presenting with weakness. ACUTE RENAL FAILURE ON CKD STAGE III Creat is 2.6 (baseline 1.5) Likely due to Bactrim, with Lasix and Lisinopril Renal US- negative for hydronephrosis, + Cortical thinning and increase in cortical echogenicity consistent with renal insufficiency, + Multiple bilateral renal cysts. Received 1 liter IVF's in ER Nephro consulted no IV fluids for now to avoid volume overload given CHF Lasix, Lisinopril held -- crea further improved to 1.[address] Torres- resume Lasix 20mg po daily hold Lisinopril ff up with PCP within 3-5 days to check PRP HYPERKALEMIA -- K on admission, 5.8 -- Kayexalate ordered -- K down to 4.4 -- repeat K as outpatient RIGHT PLEURAL EFFUSION -- likely from CHF -- moderate amount as per CT Pelvis - CXR from May 28, 2017: Stable bilateral pleural effusions. Stable right upper lobe atelectasis -- no respiratory symptoms no supplemental oxygen required -- Pulmonary consulted Dr. Forrest patient had previous thoracentesis revealing transudative pleural effusion -- discussed with daughter, she is declining thoracentesis for now -- continue to monitor as outpatient ff up with Sausage Maker Dr. Kelly as outpatient RECENT POSSIBLE UTI HISTORY OF BPH Treated with Bactrim since 06/14/17 with symptomatic improvement- discontinued due to acute renal failure Urine culture 06/14/17- multiple juan repeat urine culture as inpatient: negative CT Pelvis: Bilateral nonobstructing renal calculi. No ureteral or bladder calculi identified Enlarged prostate. Prominence of the seminal vesicles PSA: 15 -- Urology consulted, Dr. Hernández, recommendations: may need Finasteride Ff up urine cytology. Will need outpt cystoscopy to further evaluate bladder epithelium and complete workup. [facility] RENAL CYSTS NEPHROLITHIASIS -- Ct pelvis: 1. Distended debris-filled stomach 2. Severe pandiverticulosis. No evidence of acute diverticulitis 3. Moderate right pleural effusion, small left pleural effusion, cardiomegaly , and mild interstitial edema 4. Bilateral nonobstructing renal calculi. No ureteral or bladder calculi identified 5. Enlarged prostate. Prominence of the seminal vesicles -- [facility] ELEVATED TROPONIN -- ACS unlikely - Cardiology consulted, no further interventions at this time - troponin 0.5, 0.4 - echo: Conclusions -- * Aortic valve sclerosis moderate, without significant aortic valvular stenosis. * There is moderate concentric left ventricular hypertrophy. * Left ventricular systolic function is mildly reduced. * Ejection Fraction = 40-45%. * The right ventricular systolic function is normal. * The left atrium is moderately dilated. * The right atrium is moderately dilated. * There is severe mitral regurgitation. * There is severe tricuspid regurgitation. - Continue aspirin, statin, beta rosina, Imdur ATRIAL FLUTTER Rate is controlled overall Continue carvedilol Coumadin previously discontinued in 07/2016 due to bleeding complication as per cardiology note CHRONIC SYSTOLIC CHF, EF 45-50% No acute decompensation -- echo as noted above -- Lasix was held Nephrology recommends to continue Lasix monitor crea PANCREATIC CYST equivocal on CT pelvis 9 mm cyst within the pancreatic neck - monitor as outpatient DISPOSITION d/c home ff up with Dr. Collins in 1 week ff up with Urologist in 1 week ff up with Chief [employer] as scheduled Total time spent on discharge = 35 minutes This includes examination of the patient, discharge planning, medication reconciliation, and communication with other providers. Discharge Instructions Discharge Instructions Date of Service Jun 22, 2017. Admission Reason for Admission: Chano, Elevated Troponin, Hyperkalemia Discharge Discharge Diagnosis / Problem: ACUTE RENAL FAILURE, ELEVATED POTASSIUM Discharge Goals Goal(s): Diagnostic testing, Therapeutic intervention Activity Recommendations Activity Limitations: resume your previous activity . Instructions / Follow-Up Instructions / Follow-Up PLEASE REVIEW YOUR NEW MEDICATION LIST AND FOLLOW INSTRUCTIONS CAREFULLY. STOP TAKING LISINOPRIL. DR. COLLINS WILL INFORM YOU WHEN TO RESTART THIS MEDICATION. NO NSAIDS- IBUPROFEN, NAPROXEN, ETC. FOLLOW UP WITH DR. COLLINS IN 3-5 DAYS. (CLINIC TO CALL YOU FOR APPOINTMENT DATE) . FOLLOW UP WITH UROLOGIST DR. KANDIS HERNÁNDEZ IN 1 WEEK. TEL NO. Call your Primary Care doctor if any of the following symptoms or problems start or get worse: * Shortness of breath or difficulty breathing * Wake up at night short of breath * Chest pain * Cough * Swelling of your hands, feet, or legs * More fatigued or tired with your normal activity * Palpitations - sudden fast heart beats WEIGHT * Weigh yourself every morning after using the bathroom. * Use the same scale. * Wear the same amount of clothing. * Write your weight down on a chart. * Call your Primary Care doctor if you gain more than 2-3 pounds in 1-2 days. MEDICATIONS * Use this discharge instruction sheet for medication instructions. * Take your medications at the time your doctor ordered. * Do not skip a dose of your medicines. * If you miss a dose of medicine, take it as soon as possible, but DO NOT DOUBLE A DOSE. * Read your medicine information when you get home. * Know all of the side effects of your medicine. If in doubt, ask your pharmacist * Call your Primary Care doctor's office if you have any side effects. * Be sure all of your doctors know what medicine and herbs you take (including cold, flu, and herbal medicine). Take the following with you to your follow-up doctor appointments: * Weight Chart * Medication List * List of questions Do not drink excessive alcohol, beer or wine. Current Hospital Diet Patient's current hospital diet: Renal Diet Discharge Diet Recommended Diet: AHA Diet (Heart Healthy) (LOW POTASSIUM DIET- NO BANANAS, ORANGES, TOMATOES) Fluid Restriction: 2000 ml (8 cups) Procedures Procedures Performed: 2 D ECHO, CT SCAN OF ABDOMEN AND PELVIS Pending Studies Studies pending at discharge: yes List of pending studies: REPEAT BLOOD WORK C/O PRIMARY CARE PHYSICIAN Medical Emergencies . Who to Call and When: Call 911 or go to the Emergency Room if: * If at any time you feel your situation is an emergency * You have tightness or pain in your chest that does not go away with rest or Nitroglycerin * You are very short of breath even with rest . Non-Emergent Contact Non-Emergency issues call your: Primary Care Provider Call Non-Emergent contact if: you have a fever, you have any medication questions . . "Provider Documentation" section prepared by Bladimir Vidal. . VTE Core Measure Inpt VTE Proph given/why not?: SCD's
== END 2017-06-22 16:15 | disposition home or self-care (01) | DRG 292 ==
LOC: C.EDB 14:13 → C.MED 17:30 → CANRESERV 17:40 → ENRESERV 17:40
PROVIDERS: ADMIT Hospitalist; ATTEND Internal Medicine
DX: I13.0 Hypertensive heart and chronic kidney disease with heart failure and stage 1 through stage 4 chronic kidney disease, or unspecified chronic kidney disease (principal); N17.9 Acute kidney failure, unspecified; I48.92 Unspecified atrial flutter; I50.22 Chronic systolic (congestive) heart failure; K86.2 Cyst of pancreas; N40.1 Benign prostatic hyperplasia with lower urinary tract symptoms; I25.10 Atherosclerotic heart disease of native coronary artery without angina pectoris; N18.3 Chronic kidney disease, stage 3 (moderate); I12.9 Hypertensive chronic kidney disease with stage 1 through stage 4 chronic kidney disease, or unspecified chronic kidney disease; Z95.1 Presence of aortocoronary bypass graft; Z87.891 Personal history of nicotine dependence; I25.2 Old myocardial infarction; E78.5 Hyperlipidemia, unspecified; K21.9 Gastro-esophageal reflux disease without esophagitis; K57.90 Diverticulosis of intestine, part unspecified, without perforation or abscess without bleeding; N28.1 Cyst of kidney, acquired; I25.5 Ischemic cardiomyopathy; R31.9 Hematuria, unspecified; I08.1 Rheumatic disorders of both mitral and tricuspid valves